=== PATIENT | male | born 1950 | race Caucasian/White ===

== ENCOUNTER 2019-12-09 07:30 | Day surgery (SDC) | payer OTHER, SELFPAY ==
[2019-12-02 14:55] VITALS: BMI 25.8
--- NOTE | 2019-12-08 12:07 | HO.ANESPROP2 ---
HPI - Anesthesia Eval Consult details Narrative: 69yo M for Colonoscopy PMFSH Past Medical History Medical History Arthritis Depression Elevated cholesterol History of alcohol dependence HTN (hypertension) Hx of anxiety disorder PTSD (post-traumatic stress disorder) Surgical History Surgical History H/O colonoscopy History of temporal artery biopsy Hx of cystoscopy Social History Social History Smoking Status: Former smoker Years Smoked: 5 Smoked in Last 30 Days: No Smoking Quit Date: 1999 Patient Interested in Nicotine Replacement: No Patient Given Instructions on How to Stop Smoking: No Second Hand Smoke Exposure: No Use of substances other than those prescribed or required for medical reasons: Yes Substance Use Frequency: Daily Spiritual Healthcare Practices: pt does [facility] Advance Directives Information Provided: No Recently lost weight without trying: No Meds Allergies Allergy/AdvReac Type Severity Reaction Status Date / Time pravastatin Allergy Severe Muscle Pain Verified 12/02/19 15:03 simvastatin Allergy Severe Muscle Pain Verified 12/02/19 15:03 shrimp [SHRIMP] Allergy Intermediate HIVES Verified 12/02/19 15:03 Home Medications Medication Instructions Recorded Confirmed Type lovastatin 1 tab PO DAILY 12/02/19 12/02/19 History metoprolol tartrate 1 tab PO BID 12/02/19 12/09/19 History multivitamin 1 tab PO DAILY 12/02/19 12/02/19 History thiamine HCl (vitamin B1) 500 mg PO DAILY 12/02/19 12/02/19 History Exam Exam Date and Time: December 08, 2019 1207 Height,Weight and Vital Signs: Height 5 ft 7 in Weight 74.843 kg Assessment and Plan Assessment Anesthesia Assessment: Chart Reviewed
[2019-12-09] MEDS: Lactated Ringers 1,000 ML 100 ML IVCONT (08:05)
[2019-12-09 08:07] VITALS: BP 135/93; PULSE 58; RESP 16; TEMP 36.2; O2SAT 98
[2019-12-09 08:10] VITALS: BMI 25.0
--- NOTE | 2019-12-09 08:19 | MHC.SHP ---
Pre-Procedural Eval Section B Chief Complaint: HX OF POLYPS Details of Present Illness: COLON CANCER SCREENING END OF MAY HAD A FALL AND SUSTAINED CONCUSSION--NO CLEAR RESIDUAL BUT WAS A TBI NO NEW MEDS FROM PREOP MOTHER WITH COLON CANCER, SISTER WITH POLYPS. Relevant Family History (Specify if Yes): Yes Relevant Social History: Alcohol Use (EPISODIC) Present Medications: see Short Stay Collaborative assessment Medical History: Significant History (HYPERTENSION) History of Previous Operations: No relevant previous surgery Allergies: Allergies Allergy/AdvReac Type Severity Reaction Status Date / Time pravastatin Allergy Severe Muscle Pain Verified 12/02/19 15:03 simvastatin Allergy Severe Muscle Pain Verified 12/02/19 15:03 shrimp [SHRIMP] Allergy Intermediate HIVES Verified 12/02/19 15:03 Review of Systems Sugical H&P ROS: Negative: Constitution, Cardiovascular, Respiratory and Gastrointestinal and Yes, Specify: Neurological (CONCUSSION IN MAY) Exam Surgical H&P Exam: Normal: HEENT, Normal: Heart, Normal: Lungs and Normal: Extremities Plan Diagnosis/Plan: Unchanged Patient has been examined and remains a candidate for the planned procedure-YES
--- NOTE | 2019-12-09 08:20 | P.CONAN_ITS ---
[facility] Past Medical History Medical History Arthritis Depression Elevated cholesterol History of alcohol dependence HTN (hypertension) Hx of anxiety disorder PTSD (post-traumatic stress disorder) Surgical History Surgical History H/O colonoscopy History of temporal artery biopsy Hx of cystoscopy Social History Social History Smoking Status: Former smoker Years Smoked: 5 Smoked in Last 30 Days: No Smoking Quit Date: 1999 Patient Interested in Nicotine Replacement: No Patient Given Instructions on How to Stop Smoking: No Second Hand Smoke Exposure: No Use of substances other than those prescribed or required for medical reasons: Yes Substance Use Frequency: Daily Spiritual Healthcare Practices: pt does [facility] Advance Directives Information Provided: No Recently lost weight without trying: No Meds Allergies Allergy/AdvReac Type Severity Reaction Status Date / Time pravastatin Allergy Severe Muscle Pain Verified 12/02/19 15:03 simvastatin Allergy Severe Muscle Pain Verified 12/02/19 15:03 shrimp [SHRIMP] Allergy Intermediate HIVES Verified 12/02/19 15:03 Home Medications Medication Instructions Recorded Confirmed Type lovastatin 1 tab PO DAILY 12/02/19 12/02/19 History metoprolol tartrate 1 tab PO BID 12/02/19 12/09/19 History multivitamin 1 tab PO DAILY 12/02/19 12/02/19 History thiamine HCl (vitamin B1) [Vitamin 500 mg PO DAILY 12/02/19 12/02/19 History B-1] Exam Exam Date and Time: December 09, 2019 0820 Height,Weight and Vital Signs: Height 5 ft 7 in Weight 72.575 kg Last Vital Signs Temp 97.2 F 12/09/19 08:07 Pulse 58 12/09/19 08:07 Resp 16 12/09/19 08:07 BP 135/93 H 12/09/19 08:07 Pulse Ox 98 12/09/19 08:07 Airway Mallampati Class: II TM Dist: >3cm Neck ROM: Full Loose/Missing/Broken Teeth: No Heart: RRR Lungs: CTA
--- NOTE | 2019-12-09 09:21 | PM.PROC ---
Brief Operative Note Date of procedure: 12/09/19 Pre-op diagnosis: Colonic polyps--TAs Post-op diagnosis: other (Colonic polyps, Diverticulosis) Procedure: Colonoscopy with excisiona polypectomies x4 with exc bx forceps Anesthesia: MAC (MD Zach--Glucagon 1mg x1 air insufflation for last 1/2 procedure) Surgeon: Shoshana Otoole Estimated blood loss (mL): 5 Pathology: other (prox TC, ascending colon, 70 cm, 50cm) Condition: stable Disposition: PACU
[2019-12-09 09:23] VITALS: BP 118/72; PULSE 52; RESP 16; TEMP 36.5; O2SAT 97
[2019-12-09 09:37] VITALS: BP 121/82; PULSE 55; RESP 16; TEMP 36.1; O2SAT 98
--- NOTE | 2019-12-09 10:56 | HO.POSTANES ---
Post Anesthesia Evaluation Post Anesthesia Evaluation Vital Signs: Vital Signs Temp Pulse Resp BP Pulse Ox 12/09/19 09:37 97 F 55 16 121/82 98 12/09/19 09:23 97.7 F 52 16 118/72 97 12/09/19 08:07 97.2 F 58 16 135/93 H 98 Anesthesia: Monitored (TIVA) Mental Status: Awake Pain Control: Satisfactory Nausea/Vomiting: None Hydration: Adequate Anesthesia-Related Issues: No Anes. Related Issues
--- NOTE | 2020-01-11 19:27 | OP_ITS ---
SURGEON: Shoshana Otoole MD PROCEDURE PERFORMED: Colonoscopy with multiple excisional polypectomies.(cold bx forceps) ESTIMATED BLOOD LOSS: Less than 10 mL. COMPLICATIONS: No complications were noted. ANESTHESIA: Monitored. ANESTHESIOLOGIST: Dr. Serrano. ASSISTANTS: No medical technician assistant. SPECIMENS: Specimens removed; proximal transverse colon, ascending colon, 70 cm, 50 cm. PREOPERATIVE DIAGNOSES: Positive family history of colon cancer in his mother, personal history of tubular adenomas. Last colonoscopy [address] Mccray was negative. POSTOPERATIVE DIAGNOSES: Multiple polyps, minor diverticulosis. STRATEGIC PLANNING ANALYST: Dr. Otoole. COMMENT: During the procedure, glucagon 1 mg was utilized to decrease spasm on the left side to assist in polypectomy and removal. FINDINGS: Digital rectal exam revealed prostate to be unremarkable. Video colonoscope was introduced without difficulty. It was navigated into the rectosigmoid and sigmoid. In this area, there were some scattered diverticula. Scope easily entered the descending, transverse, ascending colon down into the cecum. Appendiceal orifice was seen. Ileocecal valve was well seen. The only mucosal abnormality noted was a polyp that had been identified on the way and the proximal transverse colon was removed excisionally. On withdrawing the scope, additional polyps were noted as described and specimens ascending colon 70 cm, 50 cm, all these were removed excisionally. As we pulled through the rectum, no additional lesions were seen. Anorectal verge was clear. PLAN AND CURRENT RECOMMENDATIONS: Repeat asymptomatic screening in an individual of a positive family history would be 5 years. In this patient, he had the absence of polyps in the last exam and now has 3 tubular adenomas that were removed. I would suggest considering repeat colonoscopy in this gentleman in 3 years. GRAFT OR IMPLANTS: No grafts or implants. CONDITION: Postprocedure, stable. Shoshana Otoole MD MEN/MODL / [id number] [facility]ak[facility]
== END 2019-12-09 10:45 | disposition home or self-care (01) ==
PROVIDERS: PCP Internal Medicine; Visit Provider Internal Medicine Gastroenterology
PROC: 0DJD8ZZ Inspection of Lower Intestinal Tract, Via Natural or Artificial Opening Endoscopic (ICD-10-PCS; CPT 45378; principal; 2019-12-09 08:30)
DX: Z12.11 Encounter for screening for malignant neoplasm of colon (principal); Z86.010 Personal history of colon polyps; D12.2 Benign neoplasm of ascending colon; D12.3 Benign neoplasm of transverse colon; D12.4 Benign neoplasm of descending colon; K63.5 Polyp of colon; K57.30 Diverticulosis of large intestine without perforation or abscess without bleeding; K64.8 Other hemorrhoids; I10 Essential (primary) hypertension; E78.00 Pure hypercholesterolemia, unspecified; F43.10 Post-traumatic stress disorder, unspecified; Z87.891 Personal history of nicotine dependence; Z88.8 Allergy status to other drugs, medicaments and biological substances; Z79.899 Other long term (current) drug therapy
CPT/HCPCS: 45380; 88305; J1610

== ENCOUNTER 2020-02-26 09:15 | Outpatient (REF) | payer OTHER, SELFPAY ==
--- NOTE | 2020-02-26 09:27 | XR_ITS ---
EXAMINATION: PRE-MRI ORBITS CLINICAL INFORMATION: Metal to eyes. COMPARISON: None TECHNIQUE: 3 views. FINDINGS: There is no radiopaque foreign body seen in the orbits. The paranasal sinuses and mastoid air cells are well aerated. No gross bony abnormality seen. XR/XR pre mri screening IMPRESSION: No radiopaque foreign body seen. The paranasal and mastoid sinuses are clear.
--- NOTE | 2020-02-26 09:53 | MR_ITS ---
EXAMINATION: MR SHOULDER WITHOUT CONTRAST, RIGHT CLINICAL INFORMATION: Pain, weakness, decreased range of motion. COMPARISON: None TECHNIQUE: MRI of the shoulder without contrast was performed on a high-field scanner. FINDINGS: ROTATOR CUFF: Mild supraspinatus tendinosis. Full-thickness tear anteriorly measuring 1.8 cm AP, 1.6 cm medial-lateral. Nbwx-ga-rfieoyyt infraspinatus tendinosis. Teres minor is intact. Sozp-ph-fimljqyd subscapularis tendinosis. Mild supraspinatus and subscapularis muscle atrophy. BICEPS: There is high-grade or full-thickness tearing of the long head biceps tendon, with questionable thin strand remaining. CORACOACROMIAL ARCH: The undersurface of the acromion is flat with no subacromial spur. Moderate AC joint arthritis. Small fluid in the subacromial-subdeltoid bursal space. LABRUM/CAPSULE: Irregular degenerative tearing of the superior labrum. Inferior capsule is intact. GLENOHUMERAL JOINT/MARROW: Subcortical cysts and edema in the greater tuberosity. No fracture. Small effusion. MR/MR shoulder RT wo con IMPRESSION: 1. Mild supraspinatus tendinosis. 1.8 x 1.6 cm full-thickness tear anteriorly. 2. Dwtg-rm-havolfkx infraspinatus and subscapularis tendinosis. 3. Long head biceps tendon ihsh-rnlg-lwsguevon/full-thickness tear. 4. Superior labral irregular tearing. 5. Moderate AC joint arthritis. 6. Small glenohumeral joint effusion.
== END 2020-02-26 09:16 | disposition home or self-care (01) ==
LOC: HO.MRI 09:15
PROVIDERS: Visit Provider Physician Assistant Medical
DX: M79.601 Pain in right arm (principal); R68.89 Other general symptoms and signs; R53.1 Weakness
CPT/HCPCS: 73221

== ENCOUNTER 2021-08-07 09:54 | Emergency (ER) | payer OTHER, SELFPAY ==
--- NOTE | ~2021-08-07 | CT_ITS ---
CT ANGIOGRAM NECK CLINICAL INFORMATION: Severe neck pain. COMPARISON: Cervical spine CT 06/01/2019. TECHNIQUE: A multidetector CT acquisition of the cervical spine is obtained following the administration of 70 mL of Omnipaque 350 intravenous contrast without complication. Vascular post-processing, including 2-dimensional and 3-dimensional reformatted images were created and reviewed on an independent workstation under concurrent physician supervision. Stenoses are graded per criteria similar to NASCET. This CT examination was performed using dose optimization techniques as appropriate, variously including the following: *Automated exposure control *Adjustment of mA and/or kV according to patient size (this includes techniques or standardized protocols for targeted exams where dose is matched to indication/reason for exam; i.e. extremities or head) *Use of iterative reconstruction technique FINDINGS: There is a 3 great vessel branch configuration off of the aortic arch. The great vessel origins are widely patent. The vertebral arteries are codominant and widely patent throughout their cervical course. Atherosclerotic calcification involving the carotid bifurcations bilaterally without significant stenosis involving the internal carotid arteries on either side. Partially imaged intracranial arterial vasculature is widely patent. There is new nonspecific prevertebral/retropharyngeal soft tissue swelling at C4-C5. Findings could be traumatic or infectious/inflammatory in etiology. A cervical spine MRI with and without IV contrast is recommended for further assessment if not contraindicated. There is advanced multilevel cervical spondylosis. Large bridging anterior endplate osteophytes throughout the cervical spine suggest diffuse idiopathic skeletal hyperostosis. Advanced uncovertebral joint spurring and hypertrophic facet arthropathy result in severe bilateral C3-C4, severe bilateral C4-C5, and severe bilateral C5-C6 bony foraminal stenosis, also similar to the 06/01/[address] A disc osteophyte complex at C3-C4 likely results in similar moderate central canal stenosis. The imaged upper lungs are clear. Azygous fissure. Imaged upper mediastinum is unremarkable. Other than the retropharyngeal/prevertebral swelling at C4-C5, no additional significant soft tissue findings are appreciated within the neck. The partially imaged intracranial compartment is unremarkable. Chronic traumatic deformity of the left lamina papyracea. Mucosal thickening within the right maxillary sinus. Asymmetric soft tissue prominence effacing the left fossa of Rosenmuller within the left nasopharynx that should be correlated with direct visual inspection to exclude a nasopharyngeal mass lesion. ENT correlation advised. CT/CT angio neck IMPRESSION: - There is new nonspecific prevertebral/retropharyngeal soft tissue swelling at C4-C5. Findings could be traumatic or infectious/inflammatory in etiology. A cervical spine MRI with and without IV contrast is recommended for further assessment if not contraindicated. - There is advanced multilevel cervical spondylosis. Large bridging anterior endplate osteophytes throughout the cervical spine suggest diffuse idiopathic skeletal hyperostosis. Advanced uncovertebral joint spurring and hypertrophic facet arthropathy result in severe bilateral C3-C4, severe bilateral C4-C5, and severe bilateral C5-C6 bony foraminal stenosis, also similar to the 06/01/[address] A disc osteophyte complex at C3-C4 likely results in similar moderate central canal stenosis. - Asymmetric soft tissue prominence effacing the left fossa of Rosenmuller within the left nasopharynx that should be correlated with direct visual inspection to exclude a nasopharyngeal mass lesion. ENT correlation advised. - No significant arterial stenoses in no acute arterial occlusions within the neck. No evidence of arterial dissection.
[2021-08-07 11:33] VITALS: BP 157/92; PULSE 55; RESP 18; TEMP 37.1; O2SAT 98; BMI 24.3
--- NOTE | 2021-08-07 13:28 | ED_ITS ---
HPI - Neck Pain/Injury General Chief Complaint: Neck Pain/Injury Stated Complaint: Neck pain Time Seen by Provider: 08/07/21 13:28 History of Present Illness HPI Narrative: Patient complains of 2 days of severe neck pain that hurts whenever he moves his neck, it is all over the back of his neck, there was no significant injury He was washing his car and then later in the day 2 days ago he turned his neck and felt some pain beginning and then it gradually got worse over hours, pain is not bad if he does not move his head or neck but when he turns his neck or moves it does her There is no numbness weakness or tingling and no radiation of pain no changes to bowel or bladder Related Data Home Medications Medication Instructions Recorded Confirmed lovastatin 10 mg tablet 1 tab PO DAILY 12/02/19 12/02/19 metoprolol tartrate 25 mg tablet 1 tab PO BID 12/02/19 12/09/19 multivitamin 1 tab PO DAILY 12/02/19 12/02/19 thiamine HCl (vitamin B1) 500 mg 500 mg PO DAILY 12/02/19 12/02/19 tablet Previous Rx's Medication Instructions Recorded acetaminophen 500 mg tablet 1,000 mg PO QID PRN pain #30 tabs 08/07/21 cyclobenzaprine 5 mg tablet 5 mg PO TID PRN muscle spasm #10 08/07/21 tabs ibuprofen 600 mg tablet 600 mg PO Q6H PRN pain #20 tabs 08/07/21 lidocaine 4 % topical patch 1 patch topical DAILY PRN pain #15 08/07/21 ea oxycodone 5 mg tablet 5 mg PO Q6H PRN pain #20 tabs 08/07/21 Allergies Allergy/AdvReac Type Severity Reaction Status Date / Time pravastatin Allergy Severe Muscle Pain Verified 08/07/21 11:33 simvastatin Allergy Severe Muscle Pain Verified 08/07/21 11:33 shrimp [SHRIMP] Allergy Intermediate HIVES Verified 08/07/21 11:33 Review of Systems Review of Systems: Positive for neck pain Negatives are no fever no chills no dizziness no weakness no headache no confusion no fainting no feeling faint no radiation of pain no numbness weakness or tingling no difficulty breathing or swallowing no pain on swallowing no changes to bowel or bladder no chest pain no shortness of breath no abdominal pain no nausea or vomiting no skin rash Yes all other systems are reviewed and are negative PMFSH Past Medical History [facility] Narrative: Patient has had prior injuries to head and neck in past Source: nursing notes reviewed Medical History (Updated 08/07/21 @ 18:46 by NIRAV Pedraza) Arthritis Depression Elevated cholesterol History of alcohol dependence HTN (hypertension) Hx of anxiety disorder PTSD (post-traumatic stress disorder) Tubular adenoma of colon Surgical History (Updated 12/30/19 @ 09:40 by MAICOL Gann) H/O colonoscopy History of temporal artery biopsy Hx of cystoscopy Family History Family History (Updated 12/30/19 @ 09:39 by MAICOL Gann) Mother Colon cancer Maternal Aunt Colon cancer Social History Social History (Updated 12/30/19 @ 09:38 by MAICOL Gann) Alcohol intake: current Alcohol intake frequency: does not drink Years Smoked: 5 Second Hand Smoke Exposure: No Substance Use Type: Marijuana Advance Directives: No Advance Directives Information Provided: Yes Physical Exam Vital Signs: Vital Signs: Last Vital Signs Temp 98.7 F 08/07/21 11:33 Pulse 55 08/07/21 11:33 Resp 18 08/07/21 11:33 BP 157/92 H 08/07/21 11:33 Pulse Ox 98 08/07/21 11:33 O2 Del Method 08/07/21 11:33 BMI result Body Mass Index 24.3 General appearance is no acute distress The head is normocephalic atraumatic The pharynx is clear with no redness swelling or exudate, voice is normal, mucous membranes moist The neck had no tenderness that could be located in the trapezius lateral neck or posterior neck but pain was easily reproduced with movement, there was no pa in when he was in a comfortable position with the neck in the midline, skin was normal without rashes Chest was clear to auscultation no chest wall tenderness Heart no murmur Abdomen soft nontender Extremities full range of motion x4 Neuro motor is 5/5 x4 sensation is intact and symmetrical 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 Kathia browne recommended CTA to make sure there was no arterial dissection or mass as well as to evaluate the bones CTA did show normal arteries no dissection, as well as a new nonspecic prevertebral soft tissue swelling at C4-C5, which it said could be inflammatory or infectious. I was not sure of the significance of this so I called the radiologist who said this is not an abscess there is no evidence of abscess it could be a retropharyngeal cellulitis, or more likely an inflammatory finding from arthritis in the cervical vertebrae Radiologist had recommended MRI with and without contrast to further define the inflammatory versus infectious process After discussion with Dr. Cardozo we felt there was no emergent reason to get this MRI now as patient is afebrile with out symptoms of retropharyngeal cellulitis or abscess, no sore throat, voice is normal, no drooling, no pain unless he moves his neck and this can be followed up with primary doctor as an outpatient ESR and CRP were sent without significant elevation, the patient only has pain in his neck with movement he has no sore throat he is swallowing easily and the reproducible with movement neck pain is much more consistent with an inflammatory situation from cervical arthritis The findings were discussed with attending physician dr cardozo who agreed patient should be treated for pain in his neck, follow with primary doctor MDM - Neck Pain/Injury Lab Data Attestation: I reviewed the patient's lab results. Result diagrams: 08/07/21 14:41 08/07/21 14:42 Labs: Lab Results 08/07/21 08/07/21 08/07/21 Range/Units 14:41 14:41 14:42 WBC 9.1 (4.8-10.8) X10*3/uL RBC 4.55 L (4.60-5.80) X10*6/uL Hgb 13.8 L (14.0-18.0) g/dl Hct 42.1 (42.0-52.0) % MCV 92.5 (80.0-98.0) fL MCH 30.3 (27.0-33.0) pg MCHC 32.8 (31.0-36.0) g/dl RDW 12.9 (11.0-16.0) % Plt Count 205 (160-400) X10*3/uL MPV 9.5 (9.4-12.4) fL Immature Gran % (Auto) 0.3 (0.0-0.4) % Neut % (Auto) 81.7 H (45-73) % Lymph % (Auto) 10.4 L (20-40) % [place] % (Auto) 7.4 (2-11) % Eos % (Auto) 0.1 (0-4) % Baso % (Auto) 0.1 (0-2) % Lymph # (Auto) 0.9 L (1.2-4.9) X10*3/uL [place] # (Auto) 0.7 (0.1-1.2) X10*3/uL Eos # (Auto) 0.0 (0.0-0.4) X10*3/uL Baso # (Auto) 0.0 (0.0-0.2) X10*3/uL Abs Immat Gran (auto) 0.03 (0.00-0.03) X10*3/uL Absolute Neuts (auto) 7.4 (2.0-8.3) x10*3/uL Absolute Nucleated RBC 0.000 (0.0-0.012) X10*3/uL Nucleated RBC % (auto) 0.0 (0.0-0.2) /100WBC ESR 19 H (0-15) MM/HR Sodium 136 (135-145) mmol/L Potassium 4.2 (3.3-5.1) mmol/L Chloride 99 (96-108) mmol/L Carbon Dioxide 28 (22-29) mmol/L Anion Gap 13 (12-20) BUN 8 L (9-16) mg/dL Creatinine 0.87 (0.5-1.4) mg/dL Estim Creat Clear Calc 70.7 Estimated GFR > 60 Random Glucose 106 (60-115) mg/dL Calcium 9.2 (8.4-10.2) mg/dL C-Reactive Protein 15.88 H (< or = 0.50) mg/dL Discharge Plan Discharge Clinical Impression: Neck pain Patient Disposition: Home, Self-Care Additional Instructions: Your CT scan did show some soft tissue swelling around C4 is C5, radiologist was not sure of the significance and recommended an MRI with and without IV contrast to further define the swelling The possibilities are infectious, or inflammation from arthritis. Your exam today is much more consistent with inflammation from arthritis and spinal stenosis, so we are discharging you to follow with your doctor Most important if you develop numbness or weakness or tingling in your arms or hands return immediately to the ER, if you develop fever difficulty breathing or swallowing return immediately to the ER Follow next week with primary doctor for further evaluation Prescriptions: New acetaminophen 500 mg tablet 1,000 mg PO QID PRN (Reason: pain) Qty: 30 0RF cyclobenzaprine 5 mg tablet 5 mg PO TID PRN (Reason: muscle spasm) Qty: 10 0RF ibuprofen 600 mg tablet 600 mg PO Q6H PRN (Reason: pain) Qty: 20 0RF lidocaine 4 % adhesive patch,medicated 1 patch topical DAILY PRN (Reason: pain) Qty: 15 0RF oxycodone 5 mg tablet 5 mg PO Q6H PRN (Reason: pain) Qty: 20 0RF Rx Instructions: Partial Fill upon patient request. No Action multivitamin Tablet 1 tab PO DAILY thiamine HCl (vitamin B1) 500 mg Tablet 500 mg PO DAILY lovastatin 10 mg tablet 1 tab PO DAILY metoprolol tartrate 25 mg tablet 1 tab PO BID
[2021-08-07 14:45] LABS: MANUAL DIFF FLAG NO
[2021-08-07 14:46] LABS: Basophils Percent Auto 0.1 % (0-2); Eosinophils Percent Auto 0.1 % (0-4); Hematocrit 42.1 % (42.0-52.0); Hemoglobin 13.8 g/dl (14.0-18.0); Imm Gran Abs Auto 0.03 X10*3/uL (0.00-0.03); Imm Gran Pct Auto 0.3 % (0.0-0.4); Lymphocytes Absolute Auto 0.9 X10*3/uL (1.2-4.9); Lymphocytes Percent Auto 10.4 % (20-40); Mean Corpuscular HGB Conc 32.8 g/dl (31.0-36.0); Mean Corpuscular Hemoglobin 30.3 pg (27.0-33.0); Mean Corpuscular Volume 92.5 fL (80.0-98.0); Mean Platelet Volume 9.5 fL (9.4-12.4); Monocytes Absolute Auto 0.7 X10*3/uL (0.1-1.2); Monocytes Percent Auto 7.4 % (2-11); Neutrophils Absolute Auto 7.4 x10*3/uL (2.0-8.3); Neutrophils Percent Auto 81.7 % (45-73); Platelet Count 205 X10*3/uL (160-400); Red Blood Count 4.55 X10*6/uL (4.60-5.80); Red Cell Distribution Width 12.9 % (11.0-16.0); White Blood Count 9.1 X10*3/uL (4.8-10.8)
[2021-08-07 15:00] LABS: Anion Gap 13 (12-20); Blood Urea Nitrogen 8 mg/dL (9-16); Calcium 9.2 mg/dL (8.4-10.2); Carbon Dioxide 28 mmol/L (22-29); Chloride 99 mmol/L (96-108); Creatinine Clr Calc Pharmacy 70.7; Estimated Glomerular Filt Rate > 60; Glucose Random 106 mg/dL (60-115); Potassium 4.2 mmol/L (3.3-5.1); Sodium 136 mmol/L (135-145)
[2021-08-07] MEDS: iohexoL 350 MG/ML 100 ML INFUS..BTL IV (15:26)
[2021-08-07 17:19] LABS: C Reactive Protein 15.88 mg/dL (< or = 0.50)
[2021-08-07 18:14] LABS: Erythrocyte Sedimentation Rate 19 MM/HR (0-15)
== END 2021-08-07 19:21 | disposition home or self-care (01) ==
PROVIDERS: Physician Assistant Medical; Emergency Provider Emergency Medicine Emergency Medical Services; PCP Internal Medicine
DX: M54.2 Cervicalgia (principal); Z79.899 Other long term (current) drug therapy
CPT/HCPCS: 36415; 70498; 80048; 85025; 85652; 86140; 99282; 99284; Q9967

== ENCOUNTER 2021-08-18 16:34 | Outpatient (REF) | payer OTHER, SELFPAY ==
--- NOTE | ~2021-08-18 | MR_ITS ---
EXAMINATION: MR CERVICAL SPINE WITHOUT AND WITH CONTRAST CLINICAL INFORMATION: Possible left nasopharyngeal mass. Infection or arthritis. COMPARISON: CT angiogram of the neck 08/07/2021. TECHNIQUE: Multiplanar MR imaging of the cervical spine was performed without and with contrast. A total of 7.5 mL Gadavist was utilized for this examination. FINDINGS: There is bone marrow edema and enhancement involving the C3 and C4 vertebral segments. There are erosive changes of the adjoining endplates at this level and trace fluid within the intervertebral disc space. There is also prevertebral edema and enhancement that extends from C1 to C6. Minimal type I degenerative endplate changes at C7-T1. There is loss of intervertebral disc height and T2 signal intensity at multiple additional levels related to disc degeneration. A bulging disc in conjunction with buckling of ligamenta flava at C3-C4 causes severe canal stenosis and there is compression of the cervical spinal cord with a short segment of increased intramedullary T2 signal intensity at this level consistent with edema and/or myelomalacia. The cervicomedullary junction is normal. Limited visualization of the posterior fossa reveals no abnormal finding. The occipital condyles and lateral C1 masses are intact. There is degenerative arthrosis of the atlantodental joint. C1-C2 articular facets are unremarkable. At C2-C3 there is a slightly bulging disc. No canal stenosis. Asymmetric uncovertebral joint spurring and facet degenerative change causes mild left neuroforaminal encroachment. At C3-C4, and as described above there is severe canal stenosis related to multiple factors and severe bilateral neuroforaminal encroachment. At C4-C5 there is a bulging disc. Mild to moderate canal stenosis. Uncovertebral joint spurring and facet degenerative change causes mild bilateral neuroforaminal encroachment. At C5-C6 there is a slightly bulging disc. No canal stenosis. Uncovertebral joint spurring and facet degenerative change causes moderate bilateral neuroforaminal encroachment. At C6-C7 there is a slightly dense. No canal stenosis. Uncovertebral joint spurring and facet degenerative change causes mild bilateral neuroforaminal encroachment. At C7-T1 there is a slightly bulging disc. Bilateral facet degenerative substantial neuroforaminal encroachment. Visualized soft tissues of the neck reveal no additional finding. Vascular flow voids are grossly maintained. MR/MR cervical spine wo/w con IMPRESSION: There is extensive bone marrow edema and enhancement involving the C3 and C4 vertebral segments and there is prevertebral edema that extends from C1 to C6. 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 A bulging disc in conjunction with buckling of ligamenta flava at this level causes severe canal stenosis and compression of the cervical spinal cord. There are abnormal intramedullary signal changes at this level consistent with edema and/or myelomalacia. Mild to moderate canal stenosis at C4-C5. There are varying degrees of neuroforaminal encroachment related to uncovertebral joint spurring and facet degenerative change as described above. Unsuccessful attempts were made to contact the ordering physician. Additional attempts will be made during the normal work day the following morning.
== END 2021-08-18 16:35 | disposition home or self-care (01) ==
LOC: HO.MRI 16:34
PROVIDERS: Visit Provider Internal Medicine
DX: M54.2 Cervicalgia (principal)
CPT/HCPCS: 72156; A9585

== ENCOUNTER 2022-02-18 01:53 | Emergency (ER) | payer OTHER, SELFPAY ==
--- NOTE | ~2022-02-18 | CT_ITS ---
EXAMINATION: CT ABDOMEN AND PELVIS WITH CONTRAST CLINICAL INFORMATION: Abdominal pain and diarrhea COMPARISON: 07/05/2017 TECHNIQUE: Multidetector volumetric images were obtained from the superior aspect of the liver through the pubic symphysis following administration 85 mL of Omnipaque 350 intravenous contrast. Sagittal and coronal reformatted images were obtained on the technologist's workstation. Oral contrast: No This CT examination was performed using dose optimization techniques as appropriate, variously including the following: *Automated exposure control *Adjustment of mA and/or kV according to patient size (this includes techniques or standardized protocols for targeted exams where dose is matched to indication/reason for exam; i.e. extremities or head) *Use of iterative reconstruction technique DLP: 465 mGy-cm FINDINGS: LUNG BASES: The lung bases are clear. Coronary artery calcifications are present. LIVER, GALLBLADDER, AND BILIARY TREE: The liver is normal in size, shape, and attenuation. No focal hepatic lesion or biliary ductal dilatation is present. The gallbladder is unremarkable with no evidence of radiopaque gallstones, gallbladder wall thickening, or obvious pericholecystic inflammatory changes. PANCREAS: Unremarkable. SPLEEN: Unremarkable. ADRENAL GLANDS: Unremarkable. KIDNEYS AND URETERS: The kidneys are normal in size, shape, and attenuation. No hydronephrosis, hydroureter, or calculi seen. No perinephric stranding. BLADDER: Unremarkable. GASTROINTESTINAL TRACT: The stomach is decompressed with no gross abnormality. Normal caliber small bowel. No obstruction. Colonic diverticulosis is present, greatest at the sigmoid colon. No diverticulitis. Normal appendix. No free air or free fluid. ABDOMINAL WALL: No significant hernia is appreciated. LYMPH NODES: Normal. VASCULAR: Normal caliber aorta with mild to moderate atherosclerotic calcification. PELVIC VISCERA: The prostate and seminal vesicles are unremarkable. OSSEOUS STRUCTURES: No acute or suspicious osseous abnormality. Mild degenerative change throughout the spine. CT/CT abdomen pelvis w IV con IMPRESSION: No acute findings in the abdomen or pelvis. Colonic diverticulosis without diverticulitis. Fleischner guidelines were followed.
[2022-02-18 01:55] VITALS: BP 163/73; PULSE 58; RESP 18; TEMP 36.4; O2SAT 99; BMI 25.0
--- NOTE | 2022-02-18 03:19 | ED_ITS ---
HPI - General Adult General Chief complaint: Allergic Reaction Stated complaint: allergic reaction Time Seen by Provider: 02/18/22 02:26 History of Present Illness HPI narrative: Patient is a 71-year-old male with a history of cervical diskitis status post surgery at the [facility]. Subsequently patient was on and PICC line for IV antibiotic. This lasted for 2 months. He has been on a subsequent 6 month oral regiment of cefpodoxime. Patient claims he supposed to be on this for 1 year in total. patient presents today with having diarrhea for the last 24 hours he has been on the separate doc seem 200 mg b.i.d. for the last 6 months. Patient has abdominal cramping. Had some liquidy diarrhea. Worried that he has an infection. Patient denies any fever chills. No travel history. No nausea no vomiting. Positive cramping. Came to the ED for further evaluation. Related Data Home Medications Medication Instructions Recorded Confirmed lovastatin 10 mg tablet 1 tab PO DAILY 12/02/19 12/02/19 metoprolol tartrate 25 mg tablet 1 tab PO BID 12/02/19 12/09/19 multivitamin 1 tab PO DAILY 12/02/19 12/02/19 thiamine HCl (vitamin B1) 500 mg 500 mg PO DAILY 12/02/19 12/02/19 tablet Previous Rx's Medication Instructions Recorded acetaminophen 500 mg tablet 1,000 mg PO QID PRN pain #30 tabs 08/07/21 cyclobenzaprine 5 mg tablet 5 mg PO TID PRN muscle spasm #10 08/07/21 tabs ibuprofen 600 mg tablet 600 mg PO Q6H PRN pain #20 tabs 08/07/21 lidocaine 4 % topical patch 1 patch topical DAILY PRN pain #15 08/07/21 ea oxycodone 5 mg tablet 5 mg PO Q6H PRN pain #20 tabs 08/07/21 Allergies Allergy/AdvReac Type Severity Reaction Status Date / Time pravastatin Allergy Severe Muscle Pain Verified 08/07/21 11:33 simvastatin Allergy Severe Muscle Pain Verified 08/07/21 11:33 shrimp [SHRIMP] Allergy Intermediate HIVES Verified 08/07/21 11:33 Review of Systems Review of Systems: Positive diarrhea. Positive generalized malaise Yes all other systems are reviewed and are negative PMFSH Past Medical History Attestation statement: The following information was validated with the patient. Medical History Arthritis Depression Elevated cholesterol History of alcohol dependence HTN (hypertension) Hx of anxiety disorder PTSD (post-traumatic stress disorder) Tubular adenoma of colon Surgical History H/O colonoscopy History of temporal artery biopsy Hx of cystoscopy Family History Family History Mother Colon cancer Maternal Aunt Colon cancer Social History Social History Alcohol intake: current Alcohol intake frequency: does not drink Years Smoked: 5 Smoked in Last 30 Days: No Second Hand Smoke Exposure: No Use of substances other than those prescribed or required for medical reasons: Yes Substance Use Type: Marijuana Advance Directives: No Advance Directives Information Provided: Yes Physical Exam ED Vital Signs: Vital Signs - 24 hr 02/18/22 01:55 02/18/22 06:14 Temperature 97.5 F 97.3 F Pulse Rate 58 62 Respiratory Rate 18 18 Blood Pressure 163/73 H 160/98 H Pulse Oximetry 99 97 Oxygen Delivery Method Room Air Room Air BMI result Body Mass Index 25.0 Appearance: Alert. Oriented X3. No acute distress. Eyes: Pupils equal, round and reactive to light. ENT: Pharynx normal. Neck: Normal inspection. Neck supple. No lymph nodes noted. No crepitus CVS: Normal heart rate and rhythm. Pulses normal. Normal S1 and S2 Respiratory: No respiratory distress. Breath sounds normal. No Wheezing. No rales Abdomen: Soft and nontender. No rigidity. No distention. good BS x4 Skin: Skin warm and dry. Normal skin color. Normal skin turgor. Extremities: No lower extremity edema. Neurovascular intact to all extremities. No Lacerations. No Rash Neuro: Oriented X 3. No motor deficit. No sensory deficit. Moving all extermities. No slurred speech Medications Administered Discontinued Medications Generic Name Dose Route Start Last Admin Trade Name Freq PRN Reason Stop Dose Admin Sodium Chloride 1,000 mls @ 999 mls/hr 02/18/22 03:15 02/18/22 05:42 Ns IV 02/18/22 04:15 Infused .Q1H1M RAFI Infusion Iohexol 85 ml 02/18/22 04:09 02/18/22 04:09 Iohexol 350 Mg/Ml 100 Ml Infus..Btl IV 02/18/22 04:10 85 ml ONCE ONE Administration Medical Decision Making Differential Diagnosis Positive diarrhea generalized malaise with a long history of being on set for doc seen. Patient baseline had diskitis subsequently had neuro surgery removing the diskitis and having an apparatus placed into his neck at the [facility] in [place]. Patient's CT scan of the abdomen was negative for any obstruction abscess perforation. Because patient complaining of watery stool and a funny smell with a history of being on antibiotics. Patient was tested for C diff. C diff came back positive. Will ask for Infectious Disease input as to the management of this patient as patient has a need to be on antibiotic for his diskitis. Also need to be treated for his C diff. he is otherwise in stable condition his repeated abdominal exam is soft nontender. A pages is out for infectious disease will call back at the change of shift. Admission/Observation Consideration of admission/observation: Escalation of care including admission/ observation considered Lab Data [facility] Lab Attestation statement: I reviewed the patient's lab results. 02/18/22 03:27 02/18/22 03:27 Labs: Lab Results 02/18/22 02/18/22 02/18/22 Range/Units 03:27 03:27 04:28 WBC 8.2 (4.8-10.8) X10*3/uL RBC 4.36 L (4.60-5.80) X10*6/uL Hgb 13.4 L (14.0-18.0) g/dl Hct 39.2 L (42.0-52.0) % MCV 89.9 (80.0-98.0) fL MCH 30.7 (27.0-33.0) pg MCHC 34.2 (31.0-36.0) g/dl RDW 13.1 (11.0-16.0) % Plt Count 205 (160-400) X10*3/uL MPV 9.0 L (9.4-12.4) fL Immature Gran % (Auto) 0.2 (0.0-0.4) % Neut % (Auto) 79.7 H (45-73) % Lymph % (Auto) 12.0 L (20-40) % [place] % (Auto) 6.5 (2-11) % Eos % (Auto) 1.1 (0-4) % Baso % (Auto) 0.5 (0-2) % Lymph # (Auto) 1.0 L (1.2-4.9) X10*3/uL [place] # (Auto) 0.5 (0.1-1.2) X10*3/uL Eos # (Auto) 0.1 (0.0-0.4) X10*3/uL Baso # (Auto) 0.0 (0.0-0.2) X10*3/uL Abs Immat Gran (auto) 0.02 (0.00-0.03) X10*3/uL Absolute Neuts (auto) 6.5 (2.0-8.3) x10*3/uL Absolute Nucleated RBC 0.000 (0.0-0.012) X10*3/uL Nucleated RBC % (auto) 0.0 (0.0-0.2) /100WBC Sodium 137 (135-145) mmol/L Potassium 4.0 (3.3-5.1) mmol/L Chloride 103 (96-108) mmol/L Carbon Dioxide 23 (22-29) mmol/L Anion Gap 15 (12-20) BUN 8 L (9-16) mg/dL Creatinine 0.85 (0.5-1.4) mg/dL Estim Creat Clear Calc 72.3 Estimated GFR > 60 Random Glucose 97 (60-115) mg/dL Calcium 9.0 (8.4-10.2) mg/dL Total Bilirubin 0.8 (0.0-1.0) mg/dL Direct Bilirubin 0.2 (0.0-0.5) mg/dL AST 20 (5-37) U/L ALT 20 (0-40) U/L Alkaline Phosphatase 47 (39-117) U/L Total Protein 6.4 L (6.5-8.0) g/dL Albumin 4.0 (3.5-5.0) g/dL Lipase 16 (8-78) U/L C. difficile Tox B Gene POSITIVE A* (Negative) C. difficile Toxin A&B Positive A* (Negative) C. difficile Interpret SEE NOTE External Record Review External record reviewed: Inpatient record Discharge Plan Discharge Clinical Impression: C. difficile colitis Patient Disposition: Still a Patient Prescriptions: No Action multivitamin Tablet 1 tab PO DAILY thiamine HCl (vitamin B1) 500 mg Tablet 500 mg PO DAILY lovastatin 10 mg tablet 1 tab PO DAILY metoprolol tartrate 25 mg tablet 1 tab PO BID acetaminophen 500 mg tablet 1,000 mg PO QID PRN (Reason: pain) Qty: 30 0RF cyclobenzaprine 5 mg tablet 5 mg PO TID PRN (Reason: muscle spasm) Qty: 10 0RF ibuprofen 600 mg tablet 600 mg PO Q6H PRN (Reason: pain) Qty: 20 0RF lidocaine 4 % adhesive patch,medicated 1 patch topical DAILY PRN (Reason: pain) Qty: 15 0RF oxycodone 5 mg tablet 5 mg PO Q6H PRN (Reason: pain) Qty: 20 0RF Rx Instructions: Partial Fill upon patient request.
[2022-02-18 03:31] LABS: MANUAL DIFF FLAG NO
[2022-02-18 03:33] LABS: Basophils Percent Auto 0.5 % (0-2); Eosinophils Absolute Auto 0.1 X10*3/uL (0.0-0.4); Eosinophils Percent Auto 1.1 % (0-4); Hematocrit 39.2 % (42.0-52.0); Hemoglobin 13.4 g/dl (14.0-18.0); Imm Gran Abs Auto 0.02 X10*3/uL (0.00-0.03); Imm Gran Pct Auto 0.2 % (0.0-0.4); Mean Corpuscular HGB Conc 34.2 g/dl (31.0-36.0); Mean Corpuscular Hemoglobin 30.7 pg (27.0-33.0); Mean Corpuscular Volume 89.9 fL (80.0-98.0); Monocytes Absolute Auto 0.5 X10*3/uL (0.1-1.2); Monocytes Percent Auto 6.5 % (2-11); Neutrophils Absolute Auto 6.5 x10*3/uL (2.0-8.3); Neutrophils Percent Auto 79.7 % (45-73); Platelet Count 205 X10*3/uL (160-400); Red Blood Count 4.36 X10*6/uL (4.60-5.80); Red Cell Distribution Width 13.1 % (11.0-16.0); White Blood Count 8.2 X10*3/uL (4.8-10.8)
[2022-02-18] MEDS: 0.9 % Sodium Chloride 1,000 ML 999 ML IV (03:35)
[2022-02-18 03:49] LABS: Alanine Aminotransferase 20 U/L (0-40); Alkaline Phosphatase 47 U/L (39-117); Anion Gap 15 (12-20); Aspartate Amino Transferase 20 U/L (5-37); Bilirubin Direct 0.2 mg/dL (0.0-0.5); Bilirubin Total 0.8 mg/dL (0.0-1.0); Blood Urea Nitrogen 8 mg/dL (9-16); Carbon Dioxide 23 mmol/L (22-29); Chloride 103 mmol/L (96-108); Creatinine Clr Calc Pharmacy 72.3; Estimated Glomerular Filt Rate > 60; Glucose Random 97 mg/dL (60-115); Lipase 16 U/L (8-78); Sodium 137 mmol/L (135-145); Total Protein 6.4 g/dL (6.5-8.0)
--- NOTE | 2022-02-18 04:06 | PC.NURSE ---
late entry- iv started on pt @ 0330. flushed well no s/s of infiltration. pt medicated according to campos. pt provided with bedside commode and hat for when able to provide stool sample.
[2022-02-18] MEDS: iohexoL 350 MG/ML 100 ML INFUS..BTL 85 ML IV (04:09)
--- NOTE | 2022-02-18 04:09 | PC.NURSE ---
pt returned back for ct. pt rang call robles to be disconnected from fluids to use restroom. pt ambulates independently at this time
[2022-02-18 05:20] LABS: CDiff Gene PCR POSITIVE (Negative)
--- NOTE | 2022-02-18 05:42 | PC.NURSE ---
pt resting comfortably on stretcher at this time no new requests at this time
[2022-02-18 05:43] LABS: CDiff Toxin Positive (Negative)
[2022-02-18 05:44] LABS: CDIFF Internal ctrl Dots and bkg OK (V)
--- NOTE | 2022-02-18 05:44 | PC.NURSE ---
Telephone call from the lab with critical result, patient is positive for C-diff. DANIEL Victor RN and Dr. Bae notified. C-diff precautions initiated.
--- NOTE | 2022-02-18 05:58 | PC.NURSE ---
pt POSITIVE for CDIFF. contact precautions in place. bedside commode in use for toileting. pt resting quietly at this time on stretcher
[2022-02-18 06:14] VITALS: BP 160/98; PULSE 62; RESP 18; TEMP 36.3; O2SAT 97
--- NOTE | 2022-02-18 07:09 | PC.NURSE ---
Patient AOx 4 precautions for C diff maintaned no distress noted denies chest or abdominal pain will CTM
== END 2022-02-18 08:44 | disposition home or self-care (01) ==
PROVIDERS: Emergency Provider Emergency Medicine Emergency Medical Services; PCP Internal Medicine
DX: A04.72 Enterocolitis due to Clostridium difficile, not specified as recurrent (principal); F12.90 Cannabis use, unspecified, uncomplicated; Z87.891 Personal history of nicotine dependence; Z79.2 Long term (current) use of antibiotics; Z79.899 Other long term (current) drug therapy
CPT/HCPCS: 36415; 74177; 80048; 80076; 83690; 85025; 87324; 87493; 96360; 96361; 99284; Q9967

== ENCOUNTER 2022-10-17 05:20 | Emergency (ER) | payer OTHER, SELFPAY ==
[2022-10-17 05:30] VITALS: BP 147/87; PULSE 61; RESP 16; TEMP 36.8; O2SAT 98; BMI 25.1
[2022-10-17 05:46] LABS: Hematocrit 39.1 % (42.0-52.0); Hemoglobin 13.2 g/dl (14.0-18.0); Mean Corpuscular HGB Conc 33.8 g/dl (31.0-36.0); Mean Corpuscular Hemoglobin 30.8 pg (27.0-33.0); Mean Corpuscular Volume 91.4 fL (80.0-98.0); Mean Platelet Volume 9.6 fL (9.4-12.4); Platelet Count 209 X10*3/uL (160-400); Red Blood Count 4.28 X10*6/uL (4.60-5.80); Red Cell Distribution Width 12.6 % (11.0-16.0); White Blood Count 9.8 X10*3/uL (4.8-10.8)
[2022-10-17 05:48] LABS: Appearance Urine Clear; Color Urine Yellow; Glucose Urine UA Negative (Negative); Leukocyte Esterase Urine Trace (Negative); Nitrite Urine Negative (Negative); PH 6.5 (5.0-9.0); UMIC TRIGGER UACC YES; Urine Blood Small (1+) (Negative); Urine Ketones Negative (Negative); Urine Protein Negative (Neg-Trace)
[2022-10-17 05:53] LABS: Bacteria Urine None Seen (None Seen); Hyaline Casts Urine 0-2 /LPF (0-2); Squamous Epithelial Cell Urine 0-2 /HPF (0-2); WBC Urine 0-5 /HPF (0-5)
[2022-10-17 06:00] VITALS: BP 140/73; PULSE 61; RESP 18; TEMP 36.6; O2SAT 99
[2022-10-17 06:04] LABS: Alanine Aminotransferase 22 U/L (0-40); Albumin Level 4.1 g/dL (3.5-5.0); Alkaline Phosphatase 50 U/L (39-117); Anion Gap 11 (12-20); Aspartate Amino Transferase 20 U/L (5-37); Bilirubin Total 0.6 mg/dL (0.0-1.0); Blood Urea Nitrogen 12 mg/dL (9-16); Calcium 9.3 mg/dL (8.4-10.2); Carbon Dioxide 28 mmol/L (22-29); Chloride 99 mmol/L (96-108); Estimated Glomerular Filt Rate > 60; Glucose Random 109 mg/dL (60-115); Lipase 54 U/L (8-78); Potassium 4.5 mmol/L (3.3-5.1); Sodium 133 mmol/L (135-145)
--- NOTE | 2022-10-17 06:13 | PC.NURSE ---
this rn assumed care of pt from waiting room @ 0600. pt calm and cooperative. pt changed into hospital gown. urine and blood samples sent down to lab. pt awaiting to be seen by ed provider
--- NOTE | 2022-10-17 07:00 | ED_ITS ---
HPI - Male Genitourinary General Chief complaint: Urogenital-Male Stated complaint: ?Urinary tract infection Time Seen by Provider: 10/17/22 06:57 Source: patient Mode of arrival: ambulatory Limitations: no limitations History of Present Illness HPI Narrative: 72 yo male since the ER for evaluation of UTI symptoms for the last 3 days. He states he has had increased urgency, frequency and dysuria. He has never had a UTI before. He took some leftover antibiotics that he had at home with improvement in his symptoms. He denies any abdominal pain, nausea, vomiting, diarrhea. No fever or chills. He has some mild low back pain. He denies any blood in his urine. MD Complaint: dysuria Onset (ago): day(s) (3) Duration: improved Severity: moderate Quality: burning Relieving factors: none Exacerbating factors: urination Associated symptoms: Reports dysuria Related Data Home Medications Medication Instructions Recorded Confirmed lovastatin 10 mg tablet 1 tab PO DAILY 12/02/19 12/02/19 metoprolol tartrate 25 mg tablet 1 tab PO BID 12/02/19 12/09/19 multivitamin 1 tab PO DAILY 12/02/19 12/02/19 thiamine HCl (vitamin B1) 500 mg 500 mg PO DAILY 12/02/19 12/02/19 tablet Previous Rx's Medication Instructions Recorded acetaminophen 500 mg tablet 1,000 mg (2 x 500 mg) PO QID PRN 08/07/21 pain #30 tabs cyclobenzaprine 5 mg tablet 5 mg PO TID PRN muscle spasm #10 08/07/21 tabs ibuprofen 600 mg tablet 600 mg PO Q6H PRN pain #20 tabs 08/07/21 lidocaine 4 % topical patch 1 patch topical DAILY PRN pain #15 08/07/21 ea oxycodone 5 mg tablet 5 mg PO Q6H PRN pain #20 tabs 08/07/21 vancomycin 125 mg capsule 125 mg PO QID #56 caps 02/18/22 cefuroxime axetil 250 mg tablet 250 mg PO BID 7 days #14 tabs 10/17/22 Allergies Allergy/AdvReac Type Severity Reaction Status Date / Time pravastatin Allergy Severe Muscle Pain Verified 08/07/21 11:33 simvastatin Allergy Severe Muscle Pain Verified 08/07/21 11:33 shrimp [SHRIMP] Allergy Intermediate HIVES Verified 08/07/21 11:33 Review of Systems 2 Review of Systems: Yes all other systems are reviewed and are negative FOR[facility]LY [facility], [facility] Past Medical History Medical History Arthritis Depression Elevated cholesterol History of alcohol dependence HTN (hypertension) Hx of anxiety disorder PTSD (post-traumatic stress disorder) Tubular adenoma of colon Surgical History H/O colonoscopy History of temporal artery biopsy Hx of cystoscopy Family History Family History Mother Colon cancer Maternal Aunt Colon cancer Social History Social History Alcohol intake: unknown Years Smoked: 5 Smoked in Last 30 Days: No Second Hand Smoke Exposure: No Use of substances other than those prescribed or required for medical reasons: Yes Substance Use Type: Marijuana Advance Directives: No Advance Directives Information Provided: Yes Physical Exam 2 Vital Signs: Vital Signs: Last Vital Signs Temp 97.9 F 10/17/22 06:00 Pulse 61 10/17/22 06:00 Resp 18 10/17/22 06:00 BP 140/73 H 10/17/22 06:00 Pulse Ox 99 10/17/22 06:00 O2 Del Method Room Air 10/17/22 06:00 BMI result Body Mass Index 25.1 Appearance: Alert. Oriented X3. No acute distress. Head: normocephalic, atraumatic. Eyes: Pupils equal, round and reactive to light. ENT: Pharynx normal. No tonsillar swelling or exudate. Neck: Normal inspection. Neck supple. CVS: Normal heart rate and rhythm. Pulses normal. Respiratory: No respiratory distress. Breath sounds normal. Abdomen: Soft and nontender. +BS x4 : normal inspection Skin: Skin warm and dry. Normal skin color. Normal skin turgor. No rashes. Extremities: No lower extremity edema. No joint swelling. Neuro/psych: Oriented X 3. grossly normal, non focal. Normal speech and cognition. Medical Decision Making Medical Decision Making MDM Narrative: 72-year-old male presents to the ER for evaluation urinary symptoms for the last 3 days. His vital signs are stable on arrival and his exam is unremarkable. He has ordered taken oral antibiotics for at least today at home with improvement in his symptoms. He cannot recall the name of the antibiotic. His urine test today shows small amount of blood with trace leukocyte esterase. This is most likely a partially treated UTI due to the fact that he is taking antibiotics at home. He has normal renal function. Will continue oral antibiotics and he has appointment w/ his PCP tomorrow. They will assess his prostate. Stable for d/c home Differential Diagnosis Differential Diagnoses: The differential diagnosis associated with the presentation includes UTI, pyelonephritis, BPH, bladder outlet obstruction, obstructive uropathy, kidney stone Lab Data MDM Lab Attestation statement: I reviewed the patient's lab results. No leukocytosis, mild hypo natremia, normal renal function, mild anemia 10/17/22 05:41 10/17/22 05:41 Labs: Lab Results 10/17/22 Range/Units 05:41 WBC 9.8 (4.8-10.8) X10*3/uL RBC 4.28 L (4.60-5.80) X10*6/uL Hgb 13.2 L (14.0-18.0) g/dl Hct 39.1 L (42.0-52.0) % MCV 91.4 (80.0-98.0) fL MCH 30.8 (27.0-33.0) pg MCHC 33.8 (31.0-36.0) g/dl RDW 12.6 (11.0-16.0) % Plt Count 209 (160-400) X10*3/uL MPV 9.6 (9.4-12.4) fL Absolute Nucleated RBC 0.000 (0.0-0.012) X10*3/uL Nucleated RBC % (auto) 0.0 (0.0-0.2) /100WBC Sodium 133 L (135-145) mmol/L Potassium 4.5 (3.3-5.1) mmol/L Chloride 99 (96-108) mmol/L Carbon Dioxide 28 (22-29) mmol/L Anion Gap 11 L (12-20) BUN 12 (9-16) mg/dL Creatinine 0.83 (0.5-1.4) mg/dL Estim Creat Clear Calc 73.0 Estimated GFR > 60 Random Glucose 109 (60-115) mg/dL Calcium 9.3 (8.4-10.2) mg/dL Total Bilirubin 0.6 (0.0-1.0) mg/dL AST 20 (5-37) U/L ALT 22 (0-40) U/L Alkaline Phosphatase 50 (39-117) U/L Total Protein 7.0 (6.5-8.0) g/dL Albumin 4.1 (3.5-5.0) g/dL Lipase 54 (8-78) U/L Urine Color Yellow Urine Appearance Clear Urine pH 6.5 (5.0-9.0) Ur Specific [place] 1.010 (1.005-1.025) Urine Protein Negative (Neg-Trace) mg/dL Urine Glucose (UA) Negative (Negative) mg/dL Urine Ketones Negative (Negative) mg/dL Urine Blood Small (1+) H (Negative) Urine Nitrite Negative (Negative) Ur Leukocyte Esterase Trace H (Negative) Urine RBC 6-10 H (0-2) /HPF Urine WBC 0-5 (0-5) /HPF Ur Squamous Epith Cells 0-2 (0-2) /HPF Urine Bacteria None Seen (None Seen) Hyaline Casts 0-2 (0-2) /LPF Tests considered The following testing was considered but not selected: CT scan considered given microscopic hematuria however there was no gross hematuria and this is most likely due to a partially treated UTI, imaging deferred today Prescription Management I considered prescription management with: Pain Medication and Antibiotic Critical Care Time Critical Care Time Critical Care Time: No Discharge Plan Discharge Clinical Impression: Urinary tract infection Patient Disposition: Home, Self-Care Instructions: Urinary Tract Infection in Men (DC) Additional Instructions: Take the prescribed antibiotics as directed, complete the entire course and do not miss any doses Follow up with your doctor tomorrow Drink plenty of fluids If you develop new or worsening symptoms call 911 or come back to the ER for further evaluation. Prescriptions: New cefuroxime axetil 250 mg tablet 250 mg PO BID 7 Days Qty: 14 0RF No Action multivitamin Tablet 1 tab PO DAILY thiamine HCl (vitamin B1) 500 mg Tablet 500 mg PO DAILY lovastatin 10 mg tablet 1 tab PO DAILY metoprolol tartrate 25 mg tablet 1 tab PO BID acetaminophen 500 mg tablet 1,000 mg PO QID PRN (Reason: pain) Qty: 30 0RF cyclobenzaprine 5 mg tablet 5 mg PO TID PRN (Reason: muscle spasm) Qty: 10 0RF ibuprofen 600 mg tablet 600 mg PO Q6H PRN (Reason: pain) Qty: 20 0RF lidocaine 4 % adhesive patch,medicated 1 patch topical DAILY PRN (Reason: pain) Qty: 15 0RF oxycodone 5 mg tablet 5 mg PO Q6H PRN (Reason: pain) Qty: 20 0RF Rx Instructions: Partial Fill upon patient request. vancomycin 125 mg capsule 125 mg PO QID Qty: 56 0RF
== END 2022-10-17 07:47 | disposition home or self-care (01) ==
PROVIDERS: Emergency Provider Emergency Medicine
DX: N39.0 Urinary tract infection, site not specified (principal); I10 Essential (primary) hypertension; E78.5 Hyperlipidemia, unspecified; Z87.440 Personal history of urinary (tract) infections; Z79.899 Other long term (current) drug therapy
CPT/HCPCS: 36415; 80053; 81001; 83690; 85027; 99283; 99284

== ENCOUNTER → 2022-12-05 10:03 | Outpatient (BNVA) | payer OTHER, SELFPAY | PROVIDERS: Visit Provider Nurse Practitioner ==

== ENCOUNTER 2023-02-16 12:30 | Outpatient (AMB) | payer OTHER, SELFPAY ==
--- NOTE | 2023-02-16 12:36 | A.OFFVIS_ITS ---
Intake Intake Visit Reasons: microscopic hematuria Intake Note: NEW Patient presents today Telehealth for: Microscopic Hematuria Meds- Tamsulosin Allergies to Antibiotic- No Known Allergies Blood Thinner- None Process Assistant Required: No Accompanied by: Self / Same As Patient Allergies pravastatin Allergy (Severe, Verified 02/16/23 12:37) Muscle Pain simvastatin Allergy (Severe, Verified 02/16/23 12:37) Muscle Pain shrimp [SHRIMP] Allergy (Intermediate, Verified 02/16/23 12:37) HIVES HPI HPI Comments History of Present Illness Details Aren is a 72 year old male who is here for evaluation for microscopic hematuria Past Medical history History of alcohol dependence Arthritis Hx of anxiety disorder PTSD (post-traumatic stress disorder) Depression Elevated cholesterol HTN (hypertension) The patient complains of decrease in urinary flow, nocturia, states PCP started him on tamsulosin which is helping, denies gross hematuria or dysuria, denies history of nicotine use. I have reviewed chart, imaging -- CTAP with IV contrast - urinary tract WNL, I have discussed reasons for blood in the urine may include but are not limited to kidney stones, cancer in the urinary tract, kidney stone disease or inflammatory conditions of the urinary tract [BPH]. I have discussed workup to include reevaluation of the upper tracts with renal US and office for cystoscopy evaluation. Plan: I have discussed workup to include reevaluation of the upper tracts with renal US and office for cystoscopy evaluation. COUNTS INCLUDE 234 BEDS AT THE [facility] Medical History Tubular adenoma of colon History of alcohol dependence Arthritis Hx of anxiety disorder PTSD (post-traumatic stress disorder) Depression Elevated cholesterol HTN (hypertension) Surgical History History of temporal artery biopsy Hx of cystoscopy H/O colonoscopy Family History Mother Colon cancer Maternal Aunt Colon cancer Social History Alcohol intake: never Patient Tobacco Use Status: Former Tobacco user Years Smoked: 5 Second Hand Smoke Exposure: No Substance Use Type: Marijuana Review of Systems Const All systems reviewed & are unremarkable except as noted in HPI and below Reports no additional complaints Eyes Reports no additional complaints ENT Reports no additional complaints Card Denies dyspnea Resp Denies cough and Denies dyspnea GI Reports no additional complaints Musc Reports no additional complaints Skin/Breast Denies rash and Denies unusual bruising Neuro Reports no additional complaints Psych Reports no additional complaints Endo Reports no additional complaints Yan/Lymph Reports no additional complaints Aller/Immun Reports no additional complaints Assessment & Plan Assessment & Plan (1) Microscopic hematuria: Code(s): R31.29 - Other microscopic hematuria (2) BPH loc w urin obs/LUTS: Code(s): N40.1 - Benign prostatic hyperplasia with lower urinary tract symptoms Plan I have discussed workup to include reevaluation of the upper tracts with renal US and office for cystoscopy evaluation. Orders: Orders US renal BI 02/16/23 R31.29 - Other microscopic hematuria Patient Instructions: The patient had an opportunity to ask questions regarding treatment plan. All questions were answered. Imaging, Laboratory studies and physical exam results were discussed and reviewed in detail. No major barriers to understanding were identified. The patient expressed understanding and agreement with the above treatment plan. The patient is aware they should contact our office by phone for worsening of their current condition or the appearance of new symptoms. Compliance is encouraged with any medications and followup testing that is ordered. It is a privilege to be allowed the opportunity to participate in the urologic care of your patient. If you have any questions or concerns regarding treatment for the above conditions please do not hesitate to contact me. The office telephone contact is [phone]. This note is constructed in part using voice recognition software. While every effort has been made to ensure accuracy modeling teacher errors may have been included. Yours sincerely, Nano Rai MD Telehealth Telehealth Location of provider rendering services: practice address Location of patient: address on file Patient Identification confirmed using: Name, : Yes Telehealth method: voice only Patient verbally consented to treatment: Yes Patient verbally consented to billing insurance company: Yes Patient informed of any privacy concerns related to visit: Yes Minutes spent on Phone/Video with Pt.: 28 Coding Level of Care Code Tele New Pt Level 3 (52072) Diagnoses Microscopic hematuria R31.29 BPH loc w urin obs/LUTS N40.1
== END 2023-02-16 13:11 | disposition home or self-care (01) ==
LOC: HO.HUSH 12:30
PROVIDERS: Visit Provider Urology
DX: R31.29 Other microscopic hematuria (principal); N40.1 Benign prostatic hyperplasia with lower urinary tract symptoms
CPT/HCPCS: 99203

== ENCOUNTER → 2023-02-16 12:30 | Outpatient (BNVA) | payer OTHER, SELFPAY | PROVIDERS: Visit Provider Urology ==

== ENCOUNTER 2023-03-15 13:06 | Outpatient (REF) | payer OTHER, SELFPAY ==
--- NOTE | ~2023-03-15 | US_ITS ---
EXAMINATION: US RETROPERITONEAL LIMITED (RENAL ONLY) CLINICAL INFORMATION: Microscopic hematuria. COMPARISON: CT abdomen and pelvis with contrast 02/18/2022. TECHNIQUE: Real-time imaging of the kidneys. FINDINGS: RIGHT KIDNEY: 10.6 x 6.5 x 4.7 cm (SAG x AP x TRV). The kidney is normal in size, contour, and echogenicity. Renal cortical thickness is normal. No calculi or focal parenchymal lesions. No hydronephrosis. LEFT KIDNEY: 10.9 x 4.7 x 4.5 cm (SAG x AP x TRV). The kidney is normal in size, contour, and echogenicity. Renal cortical thickness is normal. No renal calculi or hydronephrosis. At the lower pole, a 1.3 cm benign, simple, exophytic cyst is seen, for which no imaging follow-up is recommended. US/US renal BI IMPRESSION: Unremarkable examination.
== END 2023-03-15 13:07 | disposition home or self-care (01) ==
LOC: HO.US 13:06
PROVIDERS: Visit Provider Urology
DX: R31.29 Other microscopic hematuria (principal)
CPT/HCPCS: 76775

== ENCOUNTER 2023-03-21 10:11 | Day surgery (SDC) | payer OTHER, SELFPAY ==
[2023-03-19 13:29] VITALS: BMI 26.9
--- NOTE | 2023-03-20 10:43 | P.CONAN_ITS ---
Documented by User: Aranza Mauro NP 03/20/23 10:44 HPI - Anesthesia Eval Consult details Narrative: 72yo M for Colonoscopy PMFSH Active Problems Active Problems: All Active Problems (Updated 02/16/23 @ 13:01 by Nano Rai MD) BPH loc w urin obs/LUTS (Acute) Microscopic hematuria (Acute) Pre-op examination (Acute) Tubular adenoma of colon (Acute) Past Medical History Medical History Tubular adenoma of colon History of alcohol dependence Arthritis Hx of anxiety disorder PTSD (post-traumatic stress disorder) Depression Elevated cholesterol HTN (hypertension) Family History Family History Mother Colon cancer Maternal Aunt Colon cancer Surgical History Surgical History (Updated 03/19/23 @ 13:28 by Zoraida Burroughs RN) History of temporal artery biopsy Hx of cystoscopy H/O colonoscopy Social History Social History Alcohol intake: never Patient Tobacco Use Status: Former Tobacco user Years Smoked: 5 Second Hand Smoke Exposure: No Substance Use Type: Marijuana Substance Use Frequency: Weekly Have you been hit, kicked, punched, or otherwise hurt by someone within the past year? If so, by whom?: No Are you DNR?: No Advance Directives: No Advance Directives Information Provided: Yes Recently lost weight without trying: No Nutrition Risks: No Nutritional Risk Meds Allergies Allergy/AdvReac Type Severity Reaction Status Date / Time pravastatin Allergy Severe Muscle Pain Verified 02/16/23 12:37 simvastatin Allergy Severe Muscle Pain Verified 02/16/23 12:37 shrimp [SHRIMP] Allergy Intermediate HIVES Verified 02/16/23 12:37 Home Medications Medication Instructions Recorded Confirmed Last Taken Type metoprolol tartrate 25 mg tablet 1 tab PO BID 12/02/19 03/19/23 03/21/23 History multivitamin 1 tab PO DAILY 12/02/19 03/19/23 Unknown History thiamine HCl (vitamin B1) 500 mg 500 mg PO DAILY 12/02/19 03/19/23 Unknown History tablet amlodipine 5 mg tablet 5 mg PO DAILY 12/05/22 03/19/2324 History ezetimibe 10 mg tablet 10 mg PO DAILY 12/05/22 03/19/23 Unknown History tamsulosin 0.4 mg capsule 0.4 mg PO DAILY 02/16/23 03/19/23 Unknown History Exam Height,Weight and Vital Signs: Height 5 ft 7 in Weight 78.018 kg Pertinent Lab Results Pertinent Lab Results: Laboratory Tests 10/17/22 05:41 WBC 9.8 Hgb 13.2 L Hct 39.1 L Plt Count 209 Sodium 133 L Potassium 4.5 Chloride 99 Carbon Dioxide 28 BUN 12 Creatinine 0.83 Assessment and Plan Assessment Anesthesia Assessment: Chart Reviewed Documented by User: Danita Charles MD 03/21/23 11:11 [facility], [facility] Past Medical History Medical History Tubular adenoma of colon History of alcohol dependence Arthritis Hx of anxiety disorder PTSD (post-traumatic stress disorder) Depression Elevated cholesterol HTN (hypertension) Family History Family History Mother Colon cancer Maternal Aunt Colon cancer Family history of problems with anesthesia: No Surgical History Surgical History (Updated 03/19/23 @ 13:28 by Zoraida Burroughs RN) History of temporal artery biopsy Hx of cystoscopy H/O colonoscopy History of Problems with Anesthesia: No Social History Social History Alcohol intake: never Patient Tobacco Use Status: Former Tobacco user Years Smoked: 5 Second Hand Smoke Exposure: No Substance Use Type: Marijuana Substance Use Frequency: Weekly Have you been hit, kicked, punched, or otherwise hurt by someone within the past year? If so, by whom?: No Are you DNR?: No Advance Directives: No Advance Directives Information Provided: Yes Recently lost weight without trying: No Nutrition Risks: No Nutritional Risk Meds Allergies Allergy/AdvReac Type Severity Reaction Status Date / Time pravastatin Allergy Severe Muscle Pain Verified 02/16/23 12:37 simvastatin Allergy Severe Muscle Pain Verified 02/16/23 12:37 shrimp [SHRIMP] Allergy Intermediate HIVES Verified 02/16/23 12:37 Home Medications Medication Instructions Recorded Confirmed Last Taken Type metoprolol tartrate 25 mg tablet 1 tab PO BID 12/02/19 03/19/23 03/21/23 History multivitamin 1 tab PO DAILY 12/02/19 03/19/23 Unknown History thiamine HCl (vitamin B1) 500 mg 500 mg PO DAILY 12/02/19 03/19/23 Unknown History tablet amlodipine 5 mg tablet 5 mg PO DAILY 12/05/22 03/19/23 03/21/23 History ezetimibe 10 mg tablet 10 mg PO DAILY 12/05/22 03/19/23 Unknown History tamsulosin 0.4 mg capsule 0.4 mg PO DAILY 02/16/23 03/19/23 Unknown History Exam Airway Mallampati Class: II TM Dist: >3cm Neck ROM: Full Heart: rrr Lungs: cta Assessment and Plan Assessment Anesthesia Assessment: Anesthesia Plan Discussed Final Anesthetic Review Family History of Problems with Anesthesia: No History of Problems with Anesthesia: No NPO: Yes ASA Class: II Final Preanesthetic Review: No Changes in Pt Med Stat, Meds/Allgs Chart Reviewed and Consent Obtained/Reviewed Patient Risk: Intermediate Anesthetic Plan Anesthetic Plan: MAC: Disposition: Standard PACU
[2023-03-21 10:35] VITALS: BP 133/81; PULSE 65; RESP 18; TEMP 36.6; O2SAT 97; BMI 26.2
--- NOTE | 2023-03-21 11:25 | MHC.SHP ---
Pre-Procedural Eval Section A - 24 Hr Update-Section A only Date of Service: 03/21/23 Section B - Complete if H&P > 30 days Chief Complaint: Benign neoplasm of colon, unspecified Relevant Family History (Specify if Yes): No Relevant Social History: Other (specify) (THC) Present Medications: see Short Stay Collaborative assessment Medical History: Significant History (Tubular adenoma of colon History of alcohol dependence Arthritis Hx of anxiety disorder PTSD (post-traumatic stress disorder) Depression Elevated cholesterol HTN (hypertension)) History of Previous Operations: Relevant previous surgery/procedure and date(s) (History of temporal artery biopsy Hx of cystoscopy H/O colonoscopy) Allergies: Allergies Allergy/AdvReac Type Severity Reaction Status Date / Time pravastatin Allergy Severe Muscle Pain Verified 02/16/23 12:37 simvastatin Allergy Severe Muscle Pain Verified 02/16/23 12:37 shrimp [SHRIMP] Allergy Intermediate HIVES Verified 02/16/23 12:37 Review of Systems Sugical H&P ROS: Negative: Constitution, Cardiovascular, Respiratory, Neurological, Psychiatric, Hem-Onc, Allergic/Immunologic, Gastrointestinal, Genitourinary, Musculoskeletal, Integumentary, Endocrine and Eyes/Ears/Nose/Throat Exam Surgical H&P Exam: Normal: HEENT, Normal: Heart, Normal: Lungs, Normal: Extremities, Normal: Abdomen, Normal: Skin and Normal: Neurological Plan Diagnosis/Plan: Unchanged I have reviewed the history and physical and performed a pertinent physical examination on my patient. No changes have occurred unless specified. Time Spent With Patient Time: Total time managing care of this patient today ____ minutes.
--- NOTE | 2023-03-21 11:56 | W.PM.OPN ---
Operative Note Operative Note Date of Service: 03/21/23 Narrative: Operative Information Procedure Description: Colonoscopy Indication: screening Anesthesia: MAC COLONOSCOPY Instrument: Olympus variable stiffness pediatric scope 190L Colonoscopy Monitoring: Vital signs and clinical assessment, continuous EKG monitoring, Pulse oximetry, Carbon Dioxide monitoring and blood pressure monitoring were done throughout the procedure. Colon withdrawal time was 10 minutes. Procedure: The patient was placed in the left lateral decubitis position and pre-procedure medications were administered. After a digital rectal examination of the ano-rectum, the video colonoscope was inserted into the rectum and advanced through the colon to the cecum/TI. The colonoscope was slowly withdrawn in a retrograde panoramic fashion and the colon mucosa was carefully examined including a retroflexed view of the rectum. Findings and interventions are described below. Procedure Difficulty: easy Findings: Terminal Ileum-normal Cecum:normal Ascending Colon: x2 sessile polyps 3-5 mm removed with cold forceps Transverse Colon -normal Descending Colon: 6-8 mm sessile polyp removed with cold snare Sigmoid Colon: mild diverticulosis Rectum: Retroflexion with medium sized inflammed internal hemorrhoids, grade I Anorectum - normal Colon preparation: [place] Bowel Preparation Scale Right colon; 2 Transverse colon: 3 Left colon; 3 (0 = Unprepared colon segment with mucosa not seen due to solid stool that cannot be cleared. 1 = Portion of mucosa of the colon segment seen, but other areas of the colon segment not well seen due to staining, residual stool and/or opaque liquid. 2 = Minor amount of residual staining, small fragments of stool and/or opaque liquid, but mucosa of colon segment seen well. 3 = Entire mucosa of colon segment seen well with no residual staining, small fragments of stool or opaque liquid) Impression and Post Procedure Diagnosis: polyps internal hemorrhoids diverticular disease Plan: High fiber diet leaflet Avoid straining at stool, epsom salts and sitz bath, anusol supps or cream Repeat Colonoscopy in 5 years due to polyps if health allows or earlier if clinically indicated Above findings were reviewed with the patient and relevant handouts were provided if indicated.
[2023-03-21 11:59] VITALS: BP 99/57; PULSE 50; RESP 16; TEMP 36.2; O2SAT 99
[2023-03-21 12:14] VITALS: BP 117/69; PULSE 58; RESP 20; O2SAT 98
[2023-03-21 12:28] VITALS: BP 126/73; PULSE 52; RESP 20; TEMP 36.8; O2SAT 97
== END 2023-03-21 13:03 | disposition home or self-care (01) ==
PROVIDERS: Visit Provider Internal Medicine Gastroenterology
PROC: 0DJD8ZZ Inspection of Lower Intestinal Tract, Via Natural or Artificial Opening Endoscopic (ICD-10-PCS; CPT 45378; principal; 2023-03-21 12:30)
DX: Z12.11 Encounter for screening for malignant neoplasm of colon (principal); D12.2 Benign neoplasm of ascending colon; K57.30 Diverticulosis of large intestine without perforation or abscess without bleeding; K64.0 First degree hemorrhoids; Z86.010 Personal history of colon polyps; I10 Essential (primary) hypertension; E78.00 Pure hypercholesterolemia, unspecified; Z79.899 Other long term (current) drug therapy
CPT/HCPCS: 45385; 45380; 88305; J2704

== ENCOUNTER → 2023-03-21 10:11 | Outpatient (BNV) | payer OTHER, SELFPAY | PROVIDERS: Visit Provider Internal Medicine Gastroenterology | DX: Z12.11 Encounter for screening for malignant neoplasm of colon (principal); D12.2 Benign neoplasm of ascending colon; D12.4 Benign neoplasm of descending colon; K57.30 Diverticulosis of large intestine without perforation or abscess without bleeding; K64.0 First degree hemorrhoids | CPT/HCPCS: 45380; 45385 ==

== ENCOUNTER 2023-03-30 08:10 | Outpatient (AMB) | payer OTHER, SELFPAY ==
--- NOTE | 2023-03-30 08:20 | A.OFFVIS_ITS ---
Intake Intake Visit Reasons: Cysto Intake Note: Patient presents today for a CYSTOSCOPY Procedure: Meds: Tamsulosin Allergies to Antibiotic: No Known Allergies Blood Thinner: None Urinalysis test clear for Cysto? YES Disposable Uro-G Cystoscope Cannula: Lot: [id number] Exp: 06/18/2024 Burglar Alarm Superintendent Required: No Accompanied by: Self / Same As Patient Allergies pravastatin Allergy (Severe, Verified 03/30/23 08:21) Muscle Pain simvastatin Allergy (Severe, Verified 03/30/23 08:21) Muscle Pain shrimp [SHRIMP] Allergy (Intermediate, Verified 03/30/23 08:21) HIVES Medication List - Last Reconciled 03/30/23 by Nano Rai MD acetaminophen 1,000 mg (2 x 500 mg) PO QID PRN amlodipine 5 mg PO DAILY bisacodyl (Dulcolax (bisacodyl)) 10 mg (2 x 5 mg) PO BEDTIME 2 days cyclobenzaprine 5 mg PO TID PRN ezetimibe 10 mg PO DAILY ibuprofen 600 mg PO Q6H PRN lidocaine 4% 1 patch topical DAILY PRN metoprolol tartrate 1 tab PO BID multivitamin 1 tab PO DAILY peg 3350-electrolytes 236-22.74-6.74 -5.86 gram (Golytely) 240 mL PO Q10M 1 day tamsulosin 0.4 mg PO DAILY thiamine HCl (vitamin B1) 500 mg PO DAILY HPI HPI Comments History of Present Illness Details 03/30/23-Aren being evaluated for hematur ia. He is here for office cystoscopy. The patient had a renal ultrasound kidneys are within normal limits. Left kidney 1.3 cm exophytic simple cyst. Office cystoscopy: Cystoscopy findings: prostatic urethra bilobar enlargement, bulbous urethra WNL, Moderate with cellule changes noted, and several small diverticuli, no suspicious bladder lesions visualized Review of chart: 02/16/23 Aren is a 72 year old male who is here for evaluation for microscopic hematuria Past Medical history History of alcohol dependence Arthritis Hx of anxiety disorder PTSD (post-traumatic stress disorder) Depression Elevated cholesterol HTN (hypertension) The patient complains of decrease in urinary flow, nocturia, states PCP started him on tamsulosin which is helping, denies gross hematuria or dysuria, denies history of nicotine use. I have reviewed chart, imaging -- CTAP with IV contrast - urinary tract WNL, I have discussed reasons for blood in the urine may include but are not limited to kidney stones, cancer in the urinary tract, kidney stone disease or inflammatory conditions of the urinary tract [BPH]. I have discussed workup to include reevaluation of the upper tracts with renal US and office for cystoscopy evaluation. 03/30/2023 Plan: Monitor PVR Continue tamsulosin Follow-up in 6 months PFSH Medical History Tubular adenoma of colon History of alcohol dependence Arthritis Hx of anxiety disorder PTSD (post-traumatic stress disorder) Depression Elevated cholesterol HTN (hypertension) Surgical History History of temporal artery biopsy Hx of cystoscopy H/O colonoscopy Family History Mother Colon cancer Maternal Aunt Colon cancer Social History Alcohol intake: never Patient Tobacco Use Status: Former Tobacco user Years Smoked: 5 Second Hand Smoke Exposure: No Substance Use Type: Marijuana Review of Systems Const All systems reviewed & are unremarkable except as noted in HPI and below Reports no additional complaints Eyes Reports no additional complaints ENT Reports no additional complaints Card Denies dyspnea Resp Denies cough and Denies dyspnea GI Reports no additional complaints Musc Reports no additional complaints Skin/Breast Denies rash and Denies unusual bruising Neuro Reports no additional complaints Psych Reports no additional complaints Endo Reports no additional complaints Yan/Lymph Reports no additional complaints Aller/Immun Reports no additional complaints Office Procedures Cystoscopy Consent Discussed risk and benefit or proposed procedure with the patient. Information consent for procedure given to the patient. Discussed technical aspects, risks, benefits and alternatives in full. Addressed all of the patient's questions and concerns regarding the procedure. The patient demonstrated knowledge and understanding. They wish to proceed with this procedure. Preparation The patient was prepped in the usual manner. A audio visual technician was present and in the room. Genitalia was prepped with betadine solution in a sterile manner. Lidocaine Jelly 2% was placed into the urethra and 16Fr flexible Olympus cystoscope was inserted into the meatus after adequate lubrication. Procedure Time out per protocol performed. Bladder Inspection Bladder Inspection: The bladder was inspected in its entirety with utilization retroflexion d isplaying: Tumor(s): None visualized Trabeculation: Moderate with cellule changes noted, and several small diverticuli Mucosal Erthema: N/A Orifices: normal shape and position Urethra: normal Cystoscopy findings: prostatic urethra bilobar enlargement, bulbous urethra WNL, no suspicious bladder lesions visualized [id number] DISPOSABLE SCOPE URO-G FLEXIBLE SCOPE Procedure code (CPT) selection complete Office Meds lidocaine HCl 2 % mucosal jelly in applicator Performing Provider: Nano Rai MD Performing Location: [facility] Administered by: Arnold Sanchez LPN on 03/30/23 08:27 Dose Route Admin Location Dispensed Lot Number Expiration Date [facility] Outbound [employer] Executive 10 mL intra-urethral 20 mL naproxen 500 mg tablet Performing Provider: Nano Rai MD Performing Location: [facility] Administered by: Arnold Sanchez LPN on 03/30/23 08:27 Dose Route Admin Location Dispensed Lot Number Expiration Date [place] [employer]bound [employer] 500 mg PO 1 tab ciprofloxacin HCl 500 mg tablet Performing Provider: Nano Rai MD Performing Location: [facility] Administered by: Arnold Sanchez LPN on 03/30/23 08:27 Dose Route Admin Location Dispensed Lot Number Expiration Date [place] [employer]bound [employer] 500 mg PO 1 tab Results AMB Urinalysis, Automated UA Leukoctes 0 Tatiana/uL Last Edit by MAICOL Nieves on 03/30/23 08:28 UA Nitrite Negative Last Edit by MAICOL Nieves on 03/30/23 08:28 UA Urobilinogen 0.2 mg/dL Last Edit by MAICOL Nieves on 03/30/23 08:2 8 UA Protein 0 mg/dL Last Edit by MAICOL Nieves on 03/30/23 08:28 UA pH 6.0 Last Edit by MAICOL Nieves on 03/30/23 08:28 UA Blood 25 Wali/uL Last Edit by MAICOL Nieves on 03/30/23 08:28 1+ Amos Sidhu 03/30/23 08:28 UA Specific [place] 1.010 Last Edit by MAICOL Nieves on 03/30/23 08: 28 UA Ketone Last Edit by MAICOL Nieves on 03/30/23 08:28 UA Bilirubin 0 mg/dL Last Edit by MAICOL Nieves on 03/30/23 08:28 UA Glucose 0 mg/dL Last Edit by MAICOL Nieves on 03/30/23 08:28 Results Reviewed Results Reviewed: Laboratory Last Values Urine pH (Auto) 6.0 03/30/23 08:22 Specific [place] (Auto) 1.010 03/30/23 08:22 Urine Protein (Auto) 0 mg/dL 03/30/23 08:22 Glucose (UA)(Auto) 0 mg/dL 03/30/23 08:22 Urine Blood (Auto) 25 Wali/uL 03/30/23 08:22 Urine Nitrite (Auto) Negative 03/30/23 08:22 Urine Bilirubin (Auto) 0 mg/dL 03/30/23 08:22 Urine Urobilinogen (Auto) 0.2 mg/dL 03/30/23 08:22 Leukocyte Esterase (Auto) 0 Tatiana/uL 03/30/23 08:22 Date of Service: 03/15/23 EXAMINATION: US RETROPERITONEAL LIMITED (RENAL ONLY) CLINICAL INFORMATION: Microscopic hematuria. COMPARISON: CT abdomen and pelvis with contrast 02/18/2022. TECHNIQUE: Real-time imaging of the kidneys. FINDINGS: RIGHT KIDNEY: 10.6 x 6.5 x 4.7 cm (SAG x AP x TRV). The kidney is normal in size, contour, and echogenicity. Renal cortical thickness is normal. No calculi or focal parenchymal lesions. No hydronephrosis. LEFT KIDNEY: 10.9 x 4.7 x 4.5 cm (SAG x AP x TRV). The kidney is normal in size, contour, and echogenicity. Renal cortical thickness is normal. No renal calculi or hydronephrosis. At the lower pole, a 1.3 cm benign, simple, exophytic cyst is seen, for which no imaging follow-up is recommended. IMPRESSION: Unremarkable examination. Assessment & Plan Assessment & Plan (1) Microscopic hematuria: Code(s): R31.29 - Other microscopic hematuria (2) BPH loc w urin obs/LUTS: Code(s): N40.1 - Benign prostatic hyperplasia with lower urinary tract symptoms (3) Renal cyst, left: Code(s): N28.1 - Cyst of kidney, acquired Plan Monitor PVR Continue tamsulosin Follow-up in 6 months Orders: Orders AMB Urinalysis Automated Today Z13.9 - Encounter for screening, unspecified AMB Cystoscopy Today N40.1 - Benign prostatic hyperplasia with lower urinary t ract symptoms, R31.29 - Other microscopic hematuria Medications: New tamsulosin 0.4 mg PO DAILY 90 caps 2RF Patient Instructions: The patient had an opportunity to ask questions regarding treatment plan. All questions were answered. Imaging, Laboratory studies and physical exam results were discussed and reviewed in detail. No major barriers to understanding were identified. The patient expressed understanding and agreement with the above treatment plan. The patient is aware they should contact our office by phone for worsening of their current condition or the appearance of new symptoms. Compliance is encouraged with any medications and followup testing that is ordered. It is a privilege to be allowed the opportunity to participate in the urologic care of your patient. If you have any questions or concerns regarding treatment for the above conditions please do not hesitate to contact me. The office telephone contact is [phone]. This note is constructed in part using voice recognition software. While every effort has been made to ensure accuracy environmental field office manager errors may have been included. Yours sincerely, Nano Rai MD Coding Level of Care Code Procedure Only Diagnoses Microscopic hematuria R31.29 BPH loc w urin obs/LUTS N40.1 Renal cyst, left N28.1 CPT Codes Cystoscopy - CPT: 23091-[id number] ([id number])
== END 2023-03-30 09:05 | disposition home or self-care (01) ==
PROVIDERS: Visit Provider Urology
DX: N40.1 Benign prostatic hyperplasia with lower urinary tract symptoms (principal); R31.29 Other microscopic hematuria; N28.1 Cyst of kidney, acquired; Z13.9 Encounter for screening, unspecified
CPT/HCPCS: 52000

== ENCOUNTER → 2023-03-30 08:10 | Outpatient (BNVA) | payer OTHER, SELFPAY | PROVIDERS: Visit Provider Urology | DX: N40.1 Benign prostatic hyperplasia with lower urinary tract symptoms (principal); N28.1 Cyst of kidney, acquired; R31.29 Other microscopic hematuria | CPT/HCPCS: 52000; 81003 ==

== ENCOUNTER 2023-09-27 09:49 | Outpatient (REF) | payer OTHER, SELFPAY ==
[2023-09-27 12:58] LABS: PSA,Total (Free>4and<10) 3.68 ng/mL (0.00-4.00)
== END 2023-09-27 09:50 | disposition home or self-care (01) ==
LOC: HO.LAB 09:49
PROVIDERS: PCP Internal Medicine; Visit Provider Urology
DX: N40.1 Benign prostatic hyperplasia with lower urinary tract symptoms (principal); Z12.5 Encounter for screening for malignant neoplasm of prostate; R31.29 Other microscopic hematuria; N28.1 Cyst of kidney, acquired
CPT/HCPCS: 36415; 51798; 81003; 84153; 99212

== ENCOUNTER 2023-09-27 09:49 | Outpatient (AMB) | payer OTHER, SELFPAY ==
--- NOTE | 2023-09-27 10:04 | A.OFFVIS_ITS ---
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 Accompanied by: Self / Same As Patient Allergies pravastatin Allergy (Severe, Verified 09/27/23 10:04) Muscle Pain simvastatin Allergy (Severe, Verified 09/27/23 10:04) Muscle Pain shrimp [SHRIMP] Allergy (Intermediate, Verified 09/27/23 10:04) HIVES Medication List - Last Reconciled 09/27/23 by Nano Rai MD acetaminophen 1,000 mg (2 x 500 mg) PO QID PRN amlodipine 5 mg PO DAILY bisacodyl (Dulcolax (bisacodyl)) 10 mg (2 x 5 mg) PO BEDTIME 2 days cyclobenzaprine 5 mg PO TID PRN ezetimibe 10 mg PO DAILY ibuprofen 600 mg PO Q6H PRN lidocaine 4% 1 patch topical DAILY PRN metoprolol tartrate 1 tab PO BID multivitamin 1 tab PO DAILY peg 3350-electrolytes 236-22.74-6.74 -5.86 gram (Golytely) 240 mL PO Q10M 1 day tamsulosin 0.4 mg PO DAILY thiamine HCl (vitamin B1) 500 mg PO DAILY HPI Comments Details: 09/27/23--Aren is followed for BPH and had work up for microscopic hematuria. He is prescribed tamsulosin. Here for FU. Has no complaints. PSA today. Discussed pending results may also consider treatment with Proscar or Avodart. Review of chart: 03/30/23-Aren being evaluated for hematuria. He is here for office cystoscopy. The patient had a renal ultrasound kidneys are within normal limits. Left kidney 1.3 cm exophytic simple cyst. Office cystoscopy: Cystoscopy findings: prostatic urethra bilobar enlargement, bulbous urethra WNL, Moderate with cellule changes noted, and several small diverticuli, no suspicious bladder lesions visualized. Monitor PVR--Continue tamsulosin. Follow-up in 6 months 02/16/23 Aren is a 72 year old male who is here for evaluation for microscopic hematuria. The patient complains of decrease in urinary flow, nocturia, states PCP started him on tamsulosin which is helping, denies gross hematuria or dysuria, denies history of nicotine use. I have reviewed chart, imaging -- CTAP with IV contrast - urinary tract WNL, I have discussed reasons for blood in the urine may include but are not limited to kidney stones, cancer in the urinary tract, kidney stone disease or inflammatory conditions of the urinary tract [BPH]. I have discussed workup to include reevaluation of the upper tracts with renal US and office for cystoscopy evaluation. Past Medical history History of alcohol dependence Arthritis Hx of anxiety disorder PTSD (post-traumatic stress disorder) Depression Elevated cholesterol HTN (hypertension) PFSH Medical History Tubular adenoma of colon History of alcohol dependence Arthritis Hx of anxiety disorder PTSD (post-traumatic stress disorder) Depression Elevated cholesterol HTN (hypertension) Surgical History History of temporal artery biopsy Hx of cystoscopy H/O colonoscopy Family History Mother Colon cancer Maternal Aunt Colon cancer Social History Alcohol intake: never Patient Tobacco Use Status: Former Tobacco user Years Smoked: 5 Second Hand Smoke Exposure: No Substance Use Type: Marijuana Review of Systems Const All systems reviewed & are unremarkable except as noted in HPI and below Reports no additional complaints Eyes Reports no additional complaints ENT Reports no additional complaints Card Reports no additional complaints Resp Reports no additional complaints GI Reports no additional complaints Reports as per HPI Musc Reports no additional complaints Skin/Breast Reports system reviewed and no additional complaints, except as documented Neuro Reports no additional complaints Psych Reports no additional complaints Endo Reports no additional complaints Yan/Lymph Reports no additional complaints Aller/Immun Reports no additional complaints Office Procedures Post Void Residual Post Residual Void Post Void Residual (PVR): 0 [id number] Void Residual by ultrasound Results AMB Urinalysis, Automated UA Leukoctes 0 Tatiana/uL Last Edit by Mckenna Mitchell [facility] on 09/27/23 10:14 UA Nitrite Negative Last Edit by Mckenna Mitchell [facility] on 09/27/23 10:14 UA Urobilinogen 0.2 mg/dL Last Edit by Mckenna Mitchell [facility] on 09/27/23 10:1 4 UA Protein 0 mg/dL Last Edit by Mckenna Mitchell [facility] on 09/27/23 10:14 UA pH 6.0 Last Edit by Mckenna Mitchell [facility] on 09/27/23 10:14 UA Blood 25 Wali/uL Last Edit by Mckenna Mitchell [facility] on 09/27/23 10:14 UA Specific [place] 1.010 Last Edit by Mckenna Mitchell [facility] on 09/27/23 10: 14 UA Ketone Negative Last Edit by Mckenna Mitchell [facility] on 09/27/23 10:14 UA Bilirubin 0 mg/dL Last Edit by Mckenna Mitchell [facility] on 09/27/23 10:14 UA Glucose 0 mg/dL Last Edit by Mckenna Mitchell [facility] on 09/27/23 10:14 Results Reviewed Results Reviewed: Laboratory Last Values Urine pH (Auto) 6.0 09/27/23 10:14 Specific [place] (Auto) 1.010 09/27/23 10:14 Urine Protein (Auto) 0 mg/dL 09/27/23 10:14 Glucose (UA)(Auto) 0 mg/dL 09/27/23 10:14 Urine Ketones (Auto) Negative 09/27/23 10:14 Urine Blood (Auto) 25 Wali/uL 09/27/23 10:14 Urine Nitrite (Auto) Negative 09/27/23 10:14 Urine Bilirubin (Auto) 0 mg/dL 09/27/23 10:14 Urine Urobilinogen (Auto) 0.2 mg/dL 09/27/23 10:14 Leukocyte Esterase (Auto) 0 Tatiana/uL 09/27/23 10:14 Date of Service: 03/15/23 EXAMINATION: US RETROPERITONEAL LIMITED (RENAL ONLY) CLINICAL INFORMATION: Microscopic hematuria. COMPARISON: CT abdomen and pelvis with contrast 02/18/2022. TECHNIQUE: Real-time imaging of the kidneys. FINDINGS: RIGHT KIDNEY: 10.6 x 6.5 x 4.7 cm (SAG x AP x TRV). The kidney is normal in size, contour, and echogenicity. Renal cortical thickness is normal. No calculi or focal parenchymal lesions. No hydronephrosis. LEFT KIDNEY: 10.9 x 4.7 x 4.5 cm (SAG x AP x TRV). The kidney is normal in size, contour, and echogenicity. Renal cortical thickness is normal. No renal calculi or hydronephrosis. At the lower pole, a 1.3 cm benign, simple, exophytic cyst is seen, for which no imaging follow-up is recommended. IMPRESSION: Unremarkable examination. Assessment & Plan Assessment & Plan (1) Microscopic hematuria: Code(s): R31.29 - Other microscopic hematuria Category: Medical (2) BPH loc w urin obs/LUTS: Code(s): N40.1 - Benign prostatic hyperplasia with lower urinary tract symptoms Category: Medical (3) Renal cyst, left: Code(s): N28.1 - Cyst of kidney, acquired Category: Medical Plan Enlarged Prostate. Microscopic hematuria. Monitor PVR Continue tamsulosin PSA today. Consider further therapy with Proscar or Avodart Orders: Orders PSA,Total (Free>4and<10) Today N40.1 - Benign prostatic hyperplasia with lower urinary tract symptoms AMB Urinalysis Automated Today Z13.9 - Encounter for screening, unspecified Medications: Refilled tamsulosin 0.4 mg PO DAILY 90 caps 2RF Patient Instructions: The patient had an opportunity to ask questions regarding treatment plan. The patient expressed understanding and agreement with the above treatment plan. The patient is aware they should contact our office by phone for worsening of their current condition or the appearance of new symptoms. Compliance is encouraged with any medications and followup testing that is ordered. It is a privilege to be allowed the opportunity to participate in the urologic care of your patient. If you have any questions or concerns regarding treatment for the above conditions please do not hesitate to contact me. The office telephone contact is [phone]. This note is constructed in part using voice recognition software. While every effort has been made to ensure accuracy manager hospital errors may have been included. Yours sincerely, Nano Rai MD Coding Level of Care Code Est Pt Level 4 (32166) Diagnoses Microscopic hematuria R31.29 BPH loc w urin obs/LUTS N40.1 Renal cyst, left N28.1 CPT Codes Post Residual Void - PVR CPT Code: 52678-[id number] Void Residual by ultrasound ([id number])
== END 2023-09-27 11:12 | disposition home or self-care (01) ==
PROVIDERS: PCP Internal Medicine; Visit Provider Urology
DX: R31.29 Other microscopic hematuria (principal); N40.1 Benign prostatic hyperplasia with lower urinary tract symptoms; N28.1 Cyst of kidney, acquired; Z13.9 Encounter for screening, unspecified
CPT/HCPCS: 99214

== ENCOUNTER 2023-12-01 06:37 | Emergency (ER) | payer BC, SELFPAY ==
[2023-12-01 06:39] VITALS: BP 153/83; PULSE 56; RESP 18; TEMP 36.6; O2SAT 100; BMI 23.5
--- NOTE | 2023-12-01 07:12 | ED_ITS ---
HPI - Skin/Abscess/Foreign Bdy General Chief complaint: Skin/Abscess/Foreign Body Stated complaint: painful wart upper right thigh Time Seen by Provider: 12/01/23 06:49 Source: patient Mode of arrival: ambulatory Limitations: no limitations History of Present Illness ED Provider: Dr. Sukumar Lucas HPI narrative: 73-year-old male with history of tubular adenoma of the colon who presents emergency department for evaluation of painful lesion to his right thigh area. He states that he has had a wart in this area for over a year. He states that the last week the or has become painful and he noted erythema around the wart over the last several days. He states that he has been applying vinegar to the warmth to try to remove it. Patient denied any systemic symptoms such as fever, chills, fatigue. Patient contacted his PCP and he was advised to go to the emergency department for evaluation. Related Data Home Medications ?Medication ?Instructions ?Recorded ?Confirmed metoprolol tartrate 25 mg tablet 1 tab PO BID 12/02/19 09/27/23 multivitamin 1 tab PO DAILY 12/02/19 09/27/23 thiamine HCl (vitamin B1) 500 mg 500 mg PO DAILY 12/02/19 09/27/23 tablet amlodipine 5 mg tablet 5 mg PO DAILY 12/05/22 09/27/23 ezetimibe 10 mg tablet 10 mg PO DAILY 12/05/22 09/27/23 Previous Rx's ?Medication ?Instructions ?Recorded acetaminophen 500 mg tablet 1,000 mg (2 x 500 mg) PO QID PRN 08/07/21 pain #30 tabs cyclobenzaprine 5 mg tablet 5 mg PO TID PRN muscle spasm #10 08/07/21 tabs ibuprofen 600 mg tablet 600 mg PO Q6H PRN pain #20 tabs 08/07/21 lidocaine 4 % topical patch 1 patch topical DAILY PRN pain #15 08/07/21 ea bisacodyl 5 mg tablet,delayed 10 mg (2 x 5 mg) PO BEDTIME 2 days 12/05/22 release (Dulcolax (bisacodyl)) #4 tabs peg 3350-electrolytes 236 240 ml PO Q10M 1 day #4,000 mL 12/05/22 gram-22.74 gram-6.74 gram-5.86 gram solution (Golytely) tamsulosin 0.4 mg capsule 0.4 mg PO DAILY #90 caps 09/27/23 doxycycline hyclate 100 mg tablet 100 mg PO Q12H 5 days #10 tabs 12/01/23 Allergies Allergy/AdvReac Type Severity Reaction Status Date / Time pravastatin Allergy Severe Muscle Pain Verified 12/01/23 06:42 simvastatin Allergy Severe Muscle Pain Verified 12/01/23 06:42 shrimp [SHRIMP] Allergy Intermediate HIVES Verified 12/01/23 06:42 PMFSH Past Medical History Medical History Tubular adenoma of colon History of alcohol dependence Arthritis Hx of anxiety disorder PTSD (post-traumatic stress disorder) Depression Elevated cholesterol HTN (hypertension) Surgical History History of temporal artery biopsy Hx of cystoscopy H/O colonoscopy Family History Family History Mother Colon cancer Maternal Aunt Colon cancer Social History Social History Alcohol intake: never Patient Tobacco Use Status: Former Tobacco user Years Smoked: 5 Second Hand Smoke Exposure: No Substance Use Type: Marijuana Physical Exam Vital Signs: Vital Signs: Last Vital Signs Temp 97.9 F 12/01/23 06:39 Pulse 56 12/01/23 06:39 Resp 18 12/01/23 06:39 BP 153/83 H 12/01/23 06:39 Pulse Ox 100 12/01/23 06:39 O2 Del Method Room Air 12/01/23 06:39 BMI result Body Mass Index 23.5 Vital signs revealed an elevated blood pressure of 153/83 otherwise unremarkable Exam: Right thigh: The patient has a verrucal lesion to his right thigh which is surrounded by less than 1 cm of erythema which is slightly warm to the touch. The verbal lesion is mobile and is tender to palpation. Medical Decision Making Medical Decision Making MDM Narrative: 73-year-old male with no significant past medical history who presents emergency department for evaluation of the painful lesion to his right thigh. The lesion has been there for 1 year but is been painful over the past week and he did notice erythema around the lesion. His doctor advised him to go to the emergency department for evaluation. Differential diagnosis: ?Includes but is not limited to verruca lesion, rajesh lulitis Course: The patient was exam was consistent with a verruca lesion which most likely was sensitized by mild trauma. There is some slight erythema around to the verbal lesion it is possible that it may be infected as well. I did discuss the removal procedure and the patient did agree. Initially the wart was shaved down to the skin level but I was unable to core since the patient was having pain. Therefore the lesion was anesthetized with 1% lidocaine x3 cc and he was able to core the lesion. Patient did have some slight bleeding, wound was covered with bacitracin and then a Tegaderm gauze dressing was applied. Kerlix was applied over the tiger term dressing to apply some pressure to the wound. Patient was started on doxycycline 100 mg q.12 hours x5 days prophylactically to prevent infection and also to treat a possible cellulitis. Admission/Observation Consideration of admission/observation: Escalation of care including admission/observation considered (No) Procedures Procedure Narrative Procedure Narrative: Verruca lesion removed I did discuss removing the vertical lesion with the patient and I did give me informed verbal consent to proceed. The lesion was cleaned with bacitracin, anesthetized with 1% lidocaine x3 cc using a 10. Blade scalpel I was able to shave the wart down to the skin level and then core the center of the lesion. There was some mild bleeding after the procedure. The wound was covered with b acitracin, 2 x 2 gauze and Tegaderm dressing. A pad a Kerlix dressing was applied over the Tegaderm dressing. The patient tolerated the procedure well. Discharge Plan Discharge Clinical Impression: Verrucous lesion of skin Patient Disposition: Home, Self-Care Additional Instructions: You had a wart on your right leg which I removed. The wart may bleed for the next 24-48 hours. Leave the emergency department dressing on until tomorrow morning and then remove it. Apply bacitracin twice a day to the wound and keep it covered for 2-3 days. Take doxycycline 100 mg, 1 pill every 12 hours for 5 days prophylactically to prevent infection. Take extra-strength Tylenol 500 mg pills, 2 pills every 6 hours as needed for pain. Follow-up with your doctor in 2 days. Please return to the emergency department if your symptoms get worse or if you develop any symptoms that are concerning to you. Prescriptions: New doxycycline hyclate 100 mg tablet 100 mg PO Q12H 5 Days Qty: 10 0RF No Action multivitamin Tablet 1 tab PO DAILY thiamine HCl (vitamin B1) 500 mg Tablet 500 mg PO DAILY metoprolol tartrate 25 mg tablet 1 tab PO BID acetaminophen 500 mg tablet 1,000 mg PO QID PRN (Reason: pain) Qty: 30 0RF cyclobenzaprine 5 mg tablet 5 mg PO TID PRN (Reason: muscle spasm) Qty: 10 0RF ibuprofen 600 mg tablet 600 mg PO Q6H PRN (Reason: pain) Qty: 20 0RF lidocaine 4 % adhesive patch,medicated 1 patch topical DAILY PRN (Reason: pain) Qty: 15 0RF amlodipine 5 mg tablet 5 mg PO DAILY ezetimibe 10 mg tablet 10 mg PO DAILY peg 3350-electrolytes [Golytely] 236-22.74-6.74 -5.86 gram recon soln 240 ml PO Q10M 1 Days Qty: 4000 0RF Rx Instructions: until fecal effluent is clear; do not exceed a total volume of 2,000 mL bisacodyl [Dulcolax (bisacodyl)] 5 mg tablet,delayed release (DR/EC) 10 mg PO BEDTIME 2 Days Qty: 4 0RF tamsulosin 0.4 mg capsule 0.4 mg PO DAILY Qty: 90 2RF Print Language: Estonian
[2023-12-01 07:30] VITALS: BP 153/83; PULSE 56; RESP 18; TEMP 36.6; O2SAT 100
[2023-12-01] MEDS: Lidocaine HCl 1 % MPF 5 ML VIAL INFILTRATI (07:33)
[2023-12-01] MEDS: Bacitracin Oint 0.9 GM PACKET 1 APPL TOPICAL (07:33)
== END 2023-12-01 07:30 | disposition home or self-care (01) ==
PROVIDERS: Emergency Provider Emergency Medicine Emergency Medical Services; PCP Internal Medicine
DX: B07.8 Other viral warts (principal); M79.651 Pain in right thigh; I10 Essential (primary) hypertension; E78.5 Hyperlipidemia, unspecified; Z87.891 Personal history of nicotine dependence; Z79.899 Other long term (current) drug therapy
CPT/HCPCS: 11300; 99282; 99284; J2003

== ENCOUNTER 2024-06-23 13:53 | Outpatient (REF) | payer OTHER, SELFPAY ==
[2024-06-23 15:38] LABS: PSA,Total (Free>4and<10) 5.84 ng/mL (0.00-4.00)
[2024-06-26 13:38] LABS: Free Prostate Spec Ag 0.6 ng/mL; Percent Free Prostate Spec Ag 11 % (calc) (>25); Prostate Specific Ag Total 5.3 ng/mL (< OR = 4.0)
== END 2024-06-23 13:54 | disposition home or self-care (01) ==
LOC: HO.LAB 13:53
PROVIDERS: PCP Internal Medicine; Visit Provider Urology
DX: Z12.5 Encounter for screening for malignant neoplasm of prostate (principal)
CPT/HCPCS: 36415; 84153; 84154

== ENCOUNTER 2024-08-14 08:10 | Outpatient (AMB) | payer OTHER, SELFPAY ==
--- NOTE | 2024-08-13 21:47 | MHC.OFFVIS ---
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 Accompanied by: Self / Same As Patient Allergies pravastatin Allergy (Severe, Verified 08/14/24 08:49) Muscle Pain simvastatin Allergy (Severe, Verified 08/14/24 08:49) Muscle Pain shrimp (SHRIMP) Allergy (Intermediate, Verified 08/14/24 08:49) HIVES Medication List - Last Reconciled 08/14/24 by Nano Rai MD acetaminophen 1,000 mg (2 x 500 mg) PO QID PRN amlodipine 5 mg PO DAILY bisacodyl (Dulcolax (bisacodyl)) 10 mg (2 x 5 mg) PO BEDTIME 2 days cyclobenzaprine 5 mg PO TID PRN doxycycline hyclate 100 mg PO Q12H 5 days ezetimibe 10 mg PO DAILY finasteride 5 mg PO DAILY 90 days ibuprofen 600 mg PO Q6H PRN lidocaine 4% 1 patch topical DAILY PRN metoprolol tartrate 1 tab PO BID multivitamin 1 tab PO DAILY peg 3350-electrolytes 236-22.74-6.74 -5.86 gram (Golytely) 240 mL PO Q10M 1 day HPI Comments Details: 08/14/24--Aren is followed for BPH and had work up for microscopic hematuria. He is prescribed tamsulosin. Here for FU. PSA screening--06/23/24--5.84 ng/mL---09/27/23--3.64, may be related to bPH. History of Present Illness - The patient is a 74-year-old male presenting with follow-up for Benign Prostatic Hyperplasia (BPH) and elevated Prostate-Specific Antigen (PSA) levels. - History of BPH with previous workup for microscopic hematuria. - Current medication includes tamsulosin, which the patient has stopped taking. - PSA levels have increased from 3.64 ng/mL on 09/27/23 to 5.84 ng/mL on 06/23/24. - Previous cystoscopy indicated an enlarged prostate. - patient declines JOSÉ MANUEL today - Discussion on PSA as a screening tool and its implications in the context of an enlarged prostate. - The patient is informed about the potential for bladder muscle thickening due to the enlarged prostate. - ultrasound of the bladder and prostate to assess prostate size and bladder function. - Prescribe finasteride 5 mg daily - recheck PSA Results - PSA level on 06/23/24: 5.84 ng/mL - PSA level on 09/27/23: 3.64 ng/mL 09/27/23--Aren is followed for BPH and had work up for microscopic hematuria. He is prescribed tamsulosin. Here for FU. Has no complaints. PSA today. Discussed pending results may also consider treatment with Proscar or Avodart. Review of chart: 03/30/23-Aren being evaluated for hematuria. He is here for office cystoscopy. The patient had a renal ultrasound kidneys are within normal limits. Left kidney 1.3 cm exophytic simple cyst. Office cystoscopy: Cystoscopy findings: prostatic urethra bilobar enlargement, bulbous urethra WNL, Moderate with cellule changes noted, and several small diverticuli, no suspicious bladder lesions visualized. Monitor PVR--Continue tamsulosin. Follow-up in 6 months 02/16/23 Aren is a 72 year old male who is here for evaluation for microscopic hematuria. The patient complains of decrease in urinary flow, nocturia, states PCP started him on tamsulosin which is helping, denies gross hematuria or dysuria, denies history of nicotine use. I have reviewed chart, imaging -- CTAP with IV contrast - urinary tract WNL, I have discussed reasons for blood in the urine may include but are not limited to kidney stones, cancer in the urinary tract, kidney stone disease or inflammatory conditions of the urinary tract [BPH]. I have discussed workup to include reevaluation of the upper tracts with renal US and office for cystoscopy evaluation. Past Medical history History of alcohol dependence Arthritis Hx of anxiety disorder PTSD (post-traumatic stress disorder) Depression Elevated cholesterol HTN (hypertension) PFSH Medical History Tubular adenoma of colon History of alcohol dependence Arthritis Hx of anxiety disorder PTSD (post-traumatic stress disorder) Depression Elevated cholesterol HTN (hypertension) Surgical History History of temporal artery biopsy Hx of cystoscopy H/O colonoscopy Family History Mother Colon cancer Maternal Aunt Colon cancer Social History Alcohol intake: never Patient Tobacco Use Status: Former Tobacco user Years Smoked: 5 Second Hand Smoke Exposure: No Substance Use Type: Marijuana Review of Systems Const All systems reviewed & are unremarkable except as noted in HPI and below Reports no additional complaints Eyes Reports no additional complaints ENT Reports no additional complaints Card Reports no additional complaints Resp Reports no additional complaints GI Reports no additional complaints Reports as per HPI Musc Reports no additional complaints Skin/Breast Reports system reviewed and no additional complaints, except as documented Neuro Reports no additional complaints Psych Reports no additional complaints Endo Reports no additional complaints Yan/Lymph Reports no additional complaints Aller/Immun Reports no additional complaints Results Reviewed Results Reviewed: Date of Service: 03/15/23 EXAMINATION: US RETROPERITONEAL LIMITED (RENAL ONLY) CLINICAL INFORMATION: Microscopic hematuria. COMPARISON: CT abdomen and pelvis with contrast 02/18/2022. TECHNIQUE: Real-time imaging of the kidneys. FINDINGS: RIGHT KIDNEY: 10.6 x 6.5 x 4.7 cm (SAG x AP x TRV). The kidney is normal in size, contour, and echogenicity. Renal cortical thickness is normal. No calculi or focal parenchymal lesions. No hydronephrosis. LEFT KIDNEY: 10.9 x 4.7 x 4.5 cm (SAG x AP x TRV). The kidney is normal in size, contour, and echogenicity. Renal cortical thickness is normal. No renal calculi or hydronephrosis. At the lower pole, a 1.3 cm benign, simple, exophytic cyst is seen, for which no imaging follow-up is recommended. IMPRESSION: Unremarkable examination. Assessment & Plan Assessment & Plan (1) Microscopic hematuria: Code(s): R31.29 - Other microscopic hematuria Category: Medical (2) BPH loc w urin obs/LUTS: Code(s): N40.1 - Benign prostatic hyperplasia with lower urinary tract symptoms Category: Medical (3) Renal cyst, left: Code(s): N28.1 - Cyst of kidney, acquired Category: Medical (4) Elevated PSA: Code(s): R97.20 - Elevated prostate specific antigen [PSA] Category: Medical Plan Plan - Schedule an ultrasound of the bladder and prostate to assess prostate size and bladder function. - Prescribe finasteride 5 mg daily to help reduce prostate size and monitor PSA levels in six months. Orders: Orders US bladder 1 Month N40.1 - Benign prostatic hyperplasia with lower urinary tract symptoms, R31.29 - Other microscopic hematuria, R97.20 - Elevated prostate specific antigen [PSA] PSA,Total (Free>4and<10) 5 Months N40.1 - Benign prostatic hyperplasia with lower urinary tract symptoms, R97.20 - Elevated prostate specific antigen [PSA] Patient Instructions: The patient had an opportunity to ask questions regarding treatment plan. The patient expressed understanding and agreement with the above treatment plan. The patient is aware they should contact our office by phone for worsening of their current condition or the appearance of new symptoms. Compliance is encouraged with any medications and followup testing that is ordered. It is a privilege to be allowed the opportunity to participate in the urologic care of your patient. If you have any questions or concerns regarding treatment for the above conditions please do not hesitate to contact me. The office telephone contact is [phone]. This note is constructed in part using voice recognition software. While every effort has been made to ensure accuracy embossed or impressed lettering painter errors may have been included. Yours sincerely, Nano Rai MD Scribe Plan - Not visible on output: Patient was informed and verbally consented to the use of an ambient scribe for clinic note documentation during this visit. Coding Level of Care Code Est Pt Level 4 (38355) Complex EM visit Add On G2211 Diagnoses Microscopic hematuria R31.29 BPH loc w urin obs/LUTS N40.1 Renal cyst, left N28.1 Elevated PSA R97.20
== END 2024-08-14 09:33 | disposition home or self-care (01) ==
LOC: HO.HUSH 08:10
PROVIDERS: PCP Internal Medicine; Visit Provider Urology
DX: R31.29 Other microscopic hematuria (principal); N40.1 Benign prostatic hyperplasia with lower urinary tract symptoms; N28.1 Cyst of kidney, acquired; R97.20 Elevated prostate specific antigen [PSA]; Z13.9 Encounter for screening, unspecified
CPT/HCPCS: 99214; G2211

== ENCOUNTER → 2024-08-14 08:10 | Outpatient (BNVA) | payer OTHER, SELFPAY | PROVIDERS: PCP Internal Medicine; Visit Provider Urology | DX: N40.1 Benign prostatic hyperplasia with lower urinary tract symptoms (principal); R31.29 Other microscopic hematuria; N28.1 Cyst of kidney, acquired; R97.20 Elevated prostate specific antigen [PSA] | CPT/HCPCS: 81003; 99212 ==

== ENCOUNTER 2024-09-18 13:34 | Outpatient (REF) | payer OTHER, SELFPAY ==
--- NOTE | ~2024-09-18 | US_ITS ---
EXAMINATION: US PELVIS LIMITED (BLADDER) CLINICAL INFORMATION: Benign prosthetic hyperplasia with lower urinary tract symptoms. COMPARISON: Ultrasound kidney bilateral 03/15/2023 TECHNIQUE: Real-time imaging of the bladder. FINDINGS: Well distended and normal. Bilateral ureteral jets are demonstrated. Prevoid bladder volume is 155 mL. Postvoid bladder volume is 23.0 mL. The prostate volume is 32.9 mL. It is enlarged extending to basal bladder US/US bladder IMPRESSION: Small post void residual bladder volume. Mildly enlarged prostate gland mildly extending into the base of bladder. . Electronically signed by: Onel Espino MD 09/18/2024 02:26 PM EDT
--- OUTSIDE RECORDS SUMMARY | 2024-09-18 14:26 | XMS_ITS | Clinical Summary ---
Author Organization [facility] Address [address] [place] [id number] Phone Care Team Providers Care Therapist Asst Name Role Phone Nicola Boss MD Primary Care Provider + Social History Tobacco Use Types Packs/Day Years Used Date Smoking Tobacco: Never Assessed Education Answer Date Recorded Are you interested in more education? Not on ciara e 06/16/2024 Are you concerned about learning? Not on file 06/16/2024 No 06/16/2024 No 06/16/2024 Digital Access Answer Date Recorded No 06/16/2024 No 06/16/2024 Reliable internet access at home? Not on file 06/16/2024 Device with a working camera? Not on file Sex and Gender Information Value Date Recorded Sex Assigned at Not on file Legal Sex Male 8:16 AM EDT Gender Identity Not on file Sexual Orientation Not on file Plan of Treatment Not on file Medical Devices Not on file Insurance [facility] Member Subscriber Plan / Payer (Ef fective 2024-Present) Name:Aren Teixeira Relation to Subscriber:Self Name:Aren Teixeira Payer ID:[id number] (NAIC) Group ID:Not on file Type:Indemnity Address: [facility] [employer] [id number] [place] [id number] [facility] [place] [address] [facility] Care Teams Therapist Asst Relationship Specialty Start Date End Date Nicola Boss MD [address] [place] [id number] PCP - General Internal Medicine 04/15/24 Additional Source Comments The information contained in this document represents components of the legal health record. It is not the complete legal health record.[facility]
== END 2024-09-18 13:35 | disposition home or self-care (01) ==
LOC: HO.US 13:34
PROVIDERS: PCP Internal Medicine; Visit Provider Urology
DX: N40.1 Benign prostatic hyperplasia with lower urinary tract symptoms (principal); R97.20 Elevated prostate specific antigen [PSA]; R31.29 Other microscopic hematuria
CPT/HCPCS: 76857

== ENCOUNTER → 2024-09-18 13:41 | Outpatient (BNV) | payer OTHER, SELFPAY | PROVIDERS: PCP Internal Medicine; Visit Provider Radiology Diagnostic Radiology | DX: R39.14 Feeling of incomplete bladder emptying (principal) | CPT/HCPCS: 76857 ==

== ENCOUNTER 2024-10-13 07:24 | Outpatient (AMB) | payer OTHER, SELFPAY ==
--- NOTE | 2024-10-13 07:25 | MHC.OFFVIS ---
Intake Visit Reasons: Follow up/US Intake Note: Patient presents today for Telehealth bladder ultrasound 09/18/24 Urology Meds: Finasteride Allergies to Antibiotic: No Known Allergies Blood Thinner: None Vegetable Worker Required: No Accompanied by: Self / Same As Patient Allergies pravastatin Allergy (Severe, Verified 10/13/24 07:26) Muscle Pain simvastatin Allergy (Severe, Verified 10/13/24 07:26) Muscle Pain shrimp (SHRIMP) Allergy (Intermediate, Verified 10/13/24 07:26) HIVES Medication List - Last Reconciled 10/13/24 by Nano Rai MD acetaminophen 1,000 mg (2 x 500 mg) PO QID PRN amlodipine 5 mg PO DAILY bisacodyl (Dulcolax (bisacodyl)) 10 mg (2 x 5 mg) PO BEDTIME 2 days cyclobenzaprine 5 mg PO TID PRN doxycycline hyclate 100 mg PO Q12H 5 days ezetimibe 10 mg PO DAILY finasteride 5 mg PO DAILY 90 days ibuprofen 600 mg PO Q6H PRN lidocaine 4% 1 patch topical DAILY PRN metoprolol tartrate 1 tab PO BID multivitamin 1 tab PO DAILY peg 3350-electrolytes 236-22.74-6.74 -5.86 gram (Golytely) 240 mL PO Q10M 1 day HPI Comments Details: 10/13/24--Aren is followed for BPH and had work up for microscopic hematuria. He is prescribed tamsulosin. [facility] PSA --06/23/24--5.84 ng/mL---09/27/23--3.64 --the patient states he is getting up 3-4 times at night to urinate bladder ultrasound-09/18/2024--prostate volume is 32.9 mL. IMPRESSION: Small post void residual bladder volume. Mildly enlarged prostate gland mildly extending into the base of bladder. Plan continue finasteride repeat PSA in 4 months.. 08/14/24--Aren is followed for BPH and had work up for microscopic hematuria. He is prescribed tamsulosin. Here for FU. PSA screening--06/23/24--5.84 ng/mL---09/27/23--3.64, may be related to bPH. History of Present Illness - The patient is a 74-year-old male presenting with follow-up for Benign Prostatic Hyperplasia (BPH) and elevated Prostate-Specific Antigen (PSA) levels. - History of BPH with previous workup for microscopic hematuria. - Current medication includes tamsulosin, which the patient has stopped taking. - PSA levels have increased from 3.64 ng/mL on 09/27/23 to 5.84 ng/mL on 06/23/24. - Previous cystoscopy indicated an enlarged prostate. - patient declines JOSÉ MANUEL today - Discussion on PSA as a screening tool and its implications in the context of an enlarged prostate. - The patient is informed about the potential for bladder muscle thickening due to the enlarged prostate. - ultrasound of the bladder and prostate to assess prostate size and bladder function. - Prescribe finasteride 5 mg daily - recheck PSA Results - PSA level on 06/23/24: 5.84 ng/mL - PSA level on 09/27/23: 3.64 ng/mL 09/27/23--Aren is followed for BPH and had work up for microscopic hematuria. He is prescribed tamsulosin. Here for FU. Has no complaints. PSA today. Discussed pending results may also consider treatment with Proscar or Avodart. Review of chart: 03/30/23-Aren being evaluated for hematuria. He is here for office cystoscopy. The patient had a renal ultrasound kidneys are within normal limits. Left kidney 1.3 cm exophytic simple cyst. Office cystoscopy: Cystoscopy findings: prostatic urethra bilobar enlargement, bulbous urethra WNL, Moderate with cellule changes noted, and several small diverticuli, no suspicious bladder lesions visualized. Monitor PVR--Continue tamsulosin. Follow-up in 6 months 02/16/23 Aren is a 72 year old male who is here for evaluation for microscopic hematuria. The patient complains of decrease in urinary flow, nocturia, states PCP started him on tamsulosin which is helping, denies gross hematuria or dysuria, denies history of nicotine use. I have reviewed chart, imaging -- CTAP with IV contrast - urinary tract WNL, I have discussed reasons for blood in the urine may include but are not limited to kidney stones, cancer in the urinary tract, kidney stone disease or inflammatory conditions of the urinary tract [BPH]. I have discussed workup to include reevaluation of the upper tracts with renal US and office for cystoscopy evaluation. Past Medical history History of alcohol dependence Arthritis Hx of anxiety disorder PTSD (post-traumatic stress disorder) Depression Elevated cholesterol HTN (hypertension) PFSH Medical History Tubular adenoma of colon History of alcohol dependence Arthritis Hx of anxiety disorder PTSD (post-traumatic stress disorder) Depression Elevated cholesterol HTN (hypertension) Surgical History History of temporal artery biopsy Hx of cystoscopy H/O colonoscopy Family History Mother Colon cancer Maternal Aunt Colon cancer Social History Alcohol intake: never Patient Tobacco Use Status: Former Tobacco user Years Smoked: 5 Second Hand Smoke Exposure: No Substance Use Type: Marijuana Review of Systems Const All systems reviewed & are unremarkable except as noted in HPI and below Reports no additional complaints Eyes Reports no additional complaints ENT Reports no additional complaints Card Reports no additional complaints Resp Reports no additional complaints GI Reports no additional complaints Reports as per HPI Musc Reports no additional complaints Skin/Breast Reports system reviewed and no additional complaints, except as documented Neuro Reports no additional complaints Psych Reports no additional complaints Endo Reports no additional complaints Yan/Lymph Reports no additional complaints Aller/Immun Reports no additional complaints Telehealth Telehealth Telehealth Platform: [facility] Location of provider rendering services: practice address Location of patient: address on file Patient Identification confirmed using: Name, : Yes Telehealth method: voice only Patient verbally consented to treatment: Yes Patient verbally consented to billing insurance company: Yes Patient informed of any privacy concerns related to visit: Yes Minutes spent on Phone/Video with Pt.: 13 Results Reviewed Results Reviewed: Date of Service: 09/18/24 US PELVIS LIMITED (BLADDER) CLINICAL INFORMATION: Benign prosthetic hyperplasia with lower urinary tract symptoms. COMPARISON: Ultrasound kidney bilateral 03/15/2023 TECHNIQUE: Real-time imaging of the bladder. FINDINGS: Well distended and normal. Bilateral ureteral jets are demonstrated. Prevoid bladder volume is 155 mL. Postvoid bladder volume is 23.0 mL. The prostate volume is 32.9 mL. It is enlarged extending to basal bladder IMPRESSION: Small post void residual bladder volume. Mildly enlarged prostate gland mildly extending into the base of bladder. . Date of Service: 03/15/23 EXAMINATION: US RETROPERITONEAL LIMITED (RENAL ONLY) CLINICAL INFORMATION: Microscopic hematuria. COMPARISON: CT abdomen and pelvis with contrast 02/18/2022. TECHNIQUE: Real-time imaging of the kidneys. FINDINGS: RIGHT KIDNEY: 10.6 x 6.5 x 4.7 cm (SAG x AP x TRV). The kidney is normal in size, contour, and echogenicity. Renal cortical thickness is normal. No calculi or focal parenchymal lesions. No hydronephrosis. LEFT KIDNEY: 10.9 x 4.7 x 4.5 cm (SAG x AP x TRV). The kidney is normal in size, contour, and echogenicity. Renal cortical thickness is normal. No renal calculi or hydronephrosis. At the lower pole, a 1.3 cm benign, simple, exophytic cyst is seen, for which no imaging follow-up is recommended. IMPRESSION: Unremarkable examination. Assessment & Plan Assessment & Plan (1) Microscopic hematuria: Code(s): R31.29 - Other microscopic hematuria Category: Medical (2) BPH loc w urin obs/LUTS: Code(s): N40.1 - Benign prostatic hyperplasia with lower urinary tract symptoms Category: Medical (3) Renal cyst, left: Code(s): N28.1 - Cyst of kidney, acquired Category: Medical (4) Elevated PSA: Code(s): R97.20 - Elevated prostate specific antigen [PSA] Category: Medical Plan Plan continue finasteride repeat PSA in 4 months.. Medications: Refilled finasteride 5 mg PO DAILY 90 tabs 3RF 90 days Patient Instructions: The patient had an opportunity to ask questions regarding treatment plan. The patient expressed understanding and agreement with the above treatment plan. The patient is aware they should contact our office by phone for worsening of their current condition or the appearance of new symptoms. Compliance is encouraged with any medications and followup testing that is ordered. It is a privilege to be allowed the opportunity to participate in the urologic care of your patient. If you have any questions or concerns regarding treatment for the above conditions please do not hesitate to contact me. The office telephone contact is [phone]. This note is constructed in part using voice recognition software. While every effort has been made to ensure accuracy behavior interventionist errors may have been included. Yours sincerely, Nano Rai MD Coding Level of Care Code Tele Est Pt Level 3 (51684) Diagnoses Microscopic hematuria R31.29 BPH loc w urin obs/LUTS N40.1 Renal cyst, left N28.1 Elevated PSA R97.20
--- OUTSIDE RECORDS SUMMARY | 2024-10-13 07:26 | XMS_ITS | Clinical Summary ---
Author Organization [facility] Address [address] [place] [phone] Phone Care Team Providers Care Operations And Maintenance Technician Name Role Phone Nicola Boss MD Primary [...] Medical Devices Not on file Insurance [facility] Member Subscriber Plan / Payer (Ef fective 2024-Present) Name:Aren Teixeira Relation to Subscriber:Self Name:Aren Teixeira Payer ID:[id number] (NAIC) Group ID:Not on file Type:Indemnity Address: [facility] [employer] [id number] [place] [id number] [facility] Evalve [facility] [place] [address] [facility] Care Teams Operations And Maintenance Technician Relationship Specialty Start Date End Date Nicola Boss MD [address] [place] [id number] PCP - General Internal Medicine 04/15/24 Additional Source Comments The information contained in this document represents components of the legal health record. It is not the complete legal health record.[facility]
== END 2024-10-13 08:24 | disposition home or self-care (01) ==
LOC: HO.HUSH 07:24
PROVIDERS: PCP Internal Medicine; Visit Provider Urology
DX: R31.29 Other microscopic hematuria (principal); N40.1 Benign prostatic hyperplasia with lower urinary tract symptoms; N28.1 Cyst of kidney, acquired; R97.20 Elevated prostate specific antigen [PSA]
CPT/HCPCS: 99213